=== PATIENT | female | born 1965 | race Caucasian/White ===

== ENCOUNTER → 2016-12-21 | Outpatient (CLI) | payer OTHER ==
[2016-12-21 09:22] LABS: ABSOLUTE EOSINOPHILS # (AUTO) 0.2 10^3/uL (0.0-0.6); ABSOLUTE LYMPHOCYTES (AUTO) 2.9 10^3/uL (0.5-4.7); ABSOLUTE MONOCYTES (AUTO) 0.8 10^3/uL (0.1-1.4); ABSOLUTE NEUT (AUTO) 5.4 10^3/uL (1.7-8.2); BASOPHILS % (AUTO) 0.4 % (0-2); EOSINOPHILS % (AUTO) 2.2 % (0-6); HEMATOCRIT 41.4 % (36.0-47.0); HEMOGLOBIN 14.2 g/dL (12.0-15.5); HGB HCT DIFFERENCE 1.2; LYMPHOCYTES % (AUTO) 31.4 % (13-45); MEAN CORPUSCULAR HEMOGLOBIN 30.6 pg (27.0-33.4); MEAN CORPUSCULAR HGB CONC 34.2 g/dL (32.0-36.0); MEAN CORPUSCULAR VOLUME 89 fl (80-97); RED BLOOD COUNT 4.64 10^6/uL (3.72-5.28); RED CELL DISTRIBUTION WIDTH 14.5 % (11.5-14.0); WHITE BLOOD COUNT 9.4 10^3/uL (4.0-10.5)
[2016-12-21 09:55] LABS: ALANINE AMINOTRANSFERASE 21 U/L (9-52); ALBUMIN 3.7 g/dL (3.5-5.0); ALKALINE PHOSPHATASE 70 U/L (38-126); ANION GAP 11 (5-19); ASPARTATE AMINO TRANSFERASE 17 U/L (14-36); BILIRUBIN,DIRECT 0.2 mg/dL (0.0-0.4); BILIRUBIN,TOTAL 0.6 mg/dL (0.2-1.3); BLOOD UREA NITROGEN 15 mg/dL (7-20); CALCIUM 9.7 mg/dL (8.4-10.2); CARBON DIOXIDE 29 mmol/L (22-30); CHLORIDE 104 mmol/L (98-107); CHOLESTEROL 173.51 mg/dL (0-200); CREATININE RESULT 0.86 mg/dL (0.52-1.25); Direct HDL 36 mg/dL (>40); GLUCOSE 95 mg/dL (75-110); POTASSIUM 4.8 mmol/L (3.6-5.0); SODIUM 143.7 mmol/L (137-145); TOTAL PROTEIN 6.6 g/dL (6.3-8.2); TRIGLYCERIDES 215 mg/dL (<150)
[2016-12-21 10:06] LABS: DIRECT LDL 112 mg/dL (<100)
== END ==
LOC: CCC 08:19
DX: I10 Essential (primary) hypertension (principal)
CPT/HCPCS: 36415; 80053; 80061; 83036; 84443; 85025

== ENCOUNTER → 2016-12-23 | Outpatient (CLI) | payer OTHER | LOC: WI 08:20 | DX: Z12.31 Encounter for screening mammogram for malignant neoplasm of breast (principal) | CPT/HCPCS: 77067; G0202 ==

== ENCOUNTER 2017-01-05 00:10 | Emergency (ER) | payer SELFPAY ==
--- NOTE | 2017-01-05 00:35 | ER Document Report ---
ED General - General Chief Complaint: Weakness Stated Complaint: BLOOD PRESSURE ISSUE Notes: Patient is a 51-year-old female presents for complaint of feeling very dizzy and lightheaded and sweating 30 minutes after she took her first dose of Prazosin. No chest pain. No fevers. She says she has had some recent cough. No other complaints at this time. When paramedics arrived her blood pressure was 87/52. No other complaints at this time. TRAVEL OUTSIDE OF THE [place] IN LAST 30 DAYS: No - Related Data Allergies/Adverse Reactions: No Known Allergies Allergy (Verified 04/22/16 10:11) Past Medical History - Social History Smoking Status: Current Every Day Smoker Frequency of alcohol use: None Drug Abuse: None Family History: CAD, CVA, Other Patient has suicidal ideation: No Patient has homicidal ideation: No - Past Medical History Cardiac Medical History: Reports: Hx Hypercholesterolemia, Hx Hypertension Pulmonary Medical History: Reports: Hx Bronchitis, Hx COPD Renal/ Medical History: Denies: Hx Peritoneal Dialysis Psychiatric Medical History: Reports: Hx Depression Past Surgical History: Reports: Hx Section - x2, Hx Cholecystectomy, Hx Orthopedic Surgery - right shoulder - Immunizations Hx Diphtheria, Pertussis, Tetanus Vaccination: Yes Hx Pneumococcal Vaccination: 09/25/00 Review of Systems - Review of Systems Notes: My Normal Review Basic REVIEW OF SYSTEMS: CONSTITUTIONAL : Denies fever, chills, or sweats. Denies recent illness. EENT: Denies eye, ear, throat, or mouth pain or symptoms. Denies nasal or sinus congestion. CARDIOVASCULAR: Denies chest pain. RESPIRATORY: Denies cough, cold, or chest congestion. Denies shortness of breath, difficulty breathing, or wheezing. GASTROINTESTINAL: Denies abdominal pain. Denies nausea, vomiting, or diarrhea. Denies constipation. Last BM: GENITOURINARY: Denies difficulty urinating, painful urination, burning, frequency, or blood in urine. MUSCULOSKELETAL: Denies neck or back pain or joint pain or swelling. SKIN: Denies rash or skin lesions. NEUROLOGICAL: Dizziness ALL OTHER SYSTEMS REVIEWED AND NEGATIVE. Physical Exam - Vital signs Vitals: Temp Pulse Resp BP Pulse Ox 97.7 F 92 19 90/52 L 97 01/05/17 00:24 01/05/17 00:24 01/05/17 00:24 01/05/17 00:01/05/17 00:24 - Notes Notes: General Appearance: Well nourished, alert, cooperative, no acute distress, no obvious discomfort. Well-appearing. Vitals: reviewed, See vital signs table. Head: no swelling or tenderness to the head Eyes: PERRL, EOMI, Conjuctiva clear Mouth: No decreasd moisture Throat: No tonsillar inflammation, No airway obstruction, No lymphadenopathy Lungs: No wheezing, No rales, No rhonci, No accessory muscle use, good air exchange bilaterally. Heart: Normal rate, Regular rythm, No murmur, no rub Abdomen: Normal BS, soft, No rigidity, No abdominal tenderness, No guarding, no rebound, no abdominal masses, no organomegaly Extremities: strength 5/5 in all extremities, good pulses in all extremities, no swelling or tenderness in the extremities, no edema. Skin: warm, dry, appropriate color, no rash Neuro: speech clear, oriented x 3, normal affect, responds appropriately to questions. Cranial nerves II through XII are intact. Distal sensation intact. Patient moves all extremities without difficulty. Course - Re-evaluation Re-evalutation: 01/05/17 03:01 On reevaluation patient is feeling improved. Her last 2 blood pressures have been normal. I'll watch her for a little bit longer to make sure her blood pressures remained normal. - Vital Signs Vital signs: Temp Pulse Resp BP Pulse Ox 97.7 F 89 19 109/78 94 01/05/17 00:24 01/05/17 02:28 01/05/17 02:28 01/05/17 02:28 01/05/17 02:28 - Laboratory Result Diagrams: 01/05/17 01:50 01/05/17 01:50 Laboratory results interpreted by me: 01/05/17 01/05/17 01:50 01:50 WBC 15.7 H RDW 14.4 H Absolute Neutrophils 11.6 H BUN 24 H Glucose 118 H - EKG Interpretation by Me Additional EKG results interpreted by me: 01/05/17 00:46 EKG is reviewed and interpreted by me. EKG shows normal sinus rhythm with rate of [address] segment elevation or depression. No ischemic T wave changes. TX interval, QRS duration, QTc intervals are within normal range. Old EKG for comparison is from 04/22/2016. - Transfer of Care Notes: 01/05/17 03:45 Patient is feeling improved. Her blood pressures remained normal now. I feel she is safe to be discharged home. I encourage her to stop taking the Prazosin as it appears this is the culprit for her blood pressure dropped and she became dizzy. Patient slept for evaluation is unremarkable except for slight leukocytosis which I think is related to demargination from the episode of hypotension. She has no signs infection and she otherwise looks well. Dictation of this chart was performed using voice recognition software; therefore, there may be some unintended grammatical errors. Discharge - Discharge Clinical Impression: Drug reaction Hypotension Qualifiers: Hypotension type: unspecified hypotension type Qualified Code(s): I95.9 - Hypotension, unspecified Condition: Good Disposition: HOME, SELF-CARE Additional Instructions: Please return to the ER immediately if you develop recurrent dizziness, fevers, chest pain, or feel unwell. Please stop taking the Prazosin and inform your doctor of the reaction you had.
[2017-01-05 02:10] LABS: ABSOLUTE BASOPHILS # (AUTO) 0.1 10^3/uL (0.0-0.2); ABSOLUTE EOSINOPHILS # (AUTO) 0.1 10^3/uL (0.0-0.6); ABSOLUTE LYMPHOCYTES (AUTO) 2.7 10^3/uL (0.5-4.7); ABSOLUTE MONOCYTES (AUTO) 1.2 10^3/uL (0.1-1.4); ABSOLUTE NEUT (AUTO) 11.6 10^3/uL (1.7-8.2); BASOPHILS % (AUTO) 0.5 % (0-2); EOSINOPHILS % (AUTO) 0.9 % (0-6); HEMATOCRIT 38.3 % (36.0-47.0); HEMOGLOBIN 13.2 g/dL (12.0-15.5); HGB HCT DIFFERENCE 1.3; LYMPHOCYTES % (AUTO) 17.2 % (13-45); MEAN CORPUSCULAR HGB CONC 34.4 g/dL (32.0-36.0); MEAN CORPUSCULAR VOLUME 90 fl (80-97); MONOCYTES % (AUTO) 7.6 % (3-13); RED BLOOD COUNT 4.25 10^6/uL (3.72-5.28); RED CELL DISTRIBUTION WIDTH 14.4 % (11.5-14.0); SEGMENTED NEUTROPHILS % (AUTO) 73.8 % (42-78); WHITE BLOOD COUNT 15.7 10^3/uL (4.0-10.5)
[2017-01-05 02:18] LABS: ANION GAP 9 (5-19); BLOOD UREA NITROGEN 24 mg/dL (7-20); CALCIUM 8.9 mg/dL (8.4-10.2); CARBON DIOXIDE 28 mmol/L (22-30); CHLORIDE 106 mmol/L (98-107); CREATININE RESULT 0.89 mg/dL (0.52-1.25); GLUCOSE 118 mg/dL (75-110); POTASSIUM 4.4 mmol/L (3.6-5.0); SODIUM 142.6 mmol/L (137-145)
[2017-01-05 05:03] VITALS: BP 121/74
--- NOTE | 2017-01-05 08:31 | EKG REPORT ---
SEVERITY:- BORDERLINE ECG - SINUS RHYTHM LOW VOLTAGE THROUGHOUT BORDERLINE T ABNORMALITIES, ANT-LAT LEADS : Confirmed by: Oscar Miranda MD 05-Jan-2017 08:30:21
== END 2017-01-05 04:38 | disposition home or self-care (01) ==
LOC: ER 00:10
DX: I95.9 Hypotension, unspecified (principal); T44.6X5A Adverse effect of alpha-adrenoreceptor antagonists, initial encounter; R53.1 Weakness; R42 Dizziness and giddiness; Y92.9 Unspecified place or not applicable; F17.200 Nicotine dependence, unspecified, uncomplicated; E78.00 Pure hypercholesterolemia, unspecified; I10 Essential (primary) hypertension; J44.9 Chronic obstructive pulmonary disease, unspecified; Z90.49 Acquired absence of other specified parts of digestive tract
CPT/HCPCS: 36415; 71010; 80048; 85025; 93005; 93010; 99285

== ENCOUNTER 2017-04-28 19:07 | Emergency (ER) | payer MEDICAID ==
--- NOTE | 2017-04-28 20:30 | ER Document Report ---
ED Dizziness/Weakness - General Chief Complaint: Dizziness Stated Complaint: DIZZINESS/LIGHTHEADED/HEART RACING Time Seen by Provider: 04/28/17 19:54 Notes: Patient is a 51-year-old female who comes emergency department for chief complaint of an episode 2 hours [employer] where she was playing on her phone and she suddenly felt like the room was spinning around her, she states her heart started racing and she felt lightheaded. This happened for about 1-2 minutes, then again for a few seconds after. She states while the world was spinning she stood and felt off balance. She denies any current symptoms other than feeling tired. She denies any chest pain, shortness of breath, fever. She recently has had a mild cough. She smokes, PMH of HTN and COPD. Denies any other medical history. TRAVEL OUTSIDE OF THE [place] IN LAST 30 DAYS: No - Related Data Allergies/Adverse Reactions: No Known Allergies Allergy (Verified 04/28/17 19:18) Past Medical History - General Information source: Patient - Social History Smoking Status: Current Every Day Smoker Smoking Education Provided: Yes - <3 min Frequency of alcohol use: None Drug Abuse: None Lives with: Family Family History: CAD, CVA, Other - Past Medical History Cardiac Medical History: Reports: Hx Hypercholesterolemia, Hx Hypertension Pulmonary Medical History: Reports: Hx Bronchitis, Hx COPD Renal/ Medical History: Denies: Hx Peritoneal Dialysis Psychiatric Medical History: Reports: Hx Depression Past Surgical History: Reports: Hx Section - x2, Hx Cholecystectomy, Hx Orthopedic Surgery - right shoulder - Immunizations Hx Diphtheria, Pertussis, Tetanus Vaccination: Yes Hx Pneumococcal Vaccination: 09/25/00 Review of Systems - Review of Systems Constitutional: No symptoms reported EENT: No symptoms reported Cardiovascular: See HPI Respiratory: No symptoms reported Gastrointestinal: No symptoms reported Genitourinary: No symptoms reported Female Genitourinary: No symptoms reported Musculoskeletal: No symptoms reported Skin: No symptoms reported Hematologic/Lymphatic: No symptoms reported Neurological/Psychological: See HPI Physical Exam - Vital signs Vitals: Temp Pulse Resp BP Pulse Ox 98.1 F 85 20 133/77 H 94 04/28/17 19:19 04/28/17 19:19 04/28/17 19:19 04/28/17 19:19 04/28/17 19:19 Interpretation: Normal - General General appearance: Appears well, Alert In distress: None - HEENT Head: Normocephalic, Atraumatic Eyes: Normal Conjunctiva: Normal Extraocular movements intact: Yes Eyelashes: Normal Pupils: PERRL Sinus: Normal Nasal: Normal Mouth/Lips: Normal Mucous membranes: Normal Pharynx: Normal Neck: Normal - Respiratory Respiratory status: No respiratory distress Chest status: Nontender Breath sounds: Normal. No: Decreased air movement, Wheezing Chest palpation: Normal - Cardiovascular Rhythm: Regular. No: Tachycardia Heart sounds: Normal auscultation, S1 appreciated, S2 appreciated Murmur: No - Abdominal Inspection: Normal Distension: No distension Bowel sounds: Normal Tenderness: Nontender Organomegaly: No organomegaly - Back Back: Normal, Nontender - Extremities General upper extremity: Normal inspection, Nontender, Normal color, Normal ROM , Normal temperature General lower extremity: Normal inspection, Nontender, Normal color, Normal ROM , Normal temperature, Normal weight bearing. No: Nedra's sign - Neurological Neuro grossly intact: Yes Cognition: Normal Orientation: AAOx4 Delia Coma Scale Eye Opening: Spontaneous Delia Coma Scale Verbal: Oriented Harrington Coma Scale Motor: Obeys Commands Harrington Coma Scale Total: 15 Speech: Normal Motor strength normal: LUE, RUE, LLE, RLE Sensory: Normal - Psychological Associated symptoms: Normal affect, Normal mood - Skin Skin Temperature: Warm Skin Moisture: Dry Skin Color: Normal Course - Re-evaluation Re-evalutation: Patient asymptomatic on my evaluation. EKG with no arrhythmia or concerning findings, sinus rhythm with no T-wave inversions or ST segment changes in consecutive leads. CBC, chemistry, cardiac enzymes, TSH unremarkable. Chest x- ray showing possible reactive airway/viral syndrome. Patient with no symptoms on my reevaluation. I offered to do a Mahomet-Hallpike test to confirm what I suspect is vertigo. Patient agrees that she was having vertigo earlier, states she has had this in the past but has not been treated for it in a while. She refuses the test. If she asks for treatment for vertigo so it "will not come back". Patient asking to leave. No evidence of ACS or other concerning abnormality, normal neurological testing. Discussed treatment with meclizine temporarily, return precautions including headache, chest pain, shortness of breath. Patient states understanding and agreement. I also did discuss smoking cessation, patient states she knows she needs to quit and she is planning to. - Vital Signs Vital signs: Temp Pulse Resp BP Pulse Ox 98.4 F 85 16 105/79 96 04/28/17 22:01 04/28/17 19:19 04/28/17 22:01 04/28/17 22:01 04/28/17 22:01 - Laboratory Result Diagrams: 04/28/17 20:55 04/28/17 20:55 Laboratory results interpreted by me: 04/28/17 20:55 WBC 12.1 H Discharge - Discharge Clinical Impression: Dizziness, Vertigo Condition: Stable Disposition: HOME, SELF-CARE Additional Instructions: No concerning abnormality is seen on your workup tonight. Your symptoms are most consistent with vertigo. Your chest x-ray suggests mild upper respiratory congestion. Stop smoking. Take the meclizine as prescribed, follow-up with primary care for additional management. Return to emergency department for any concerning symptoms including chest pain, shortness of breath, passing out, weakness on one side of your body, or any other concerning symptoms. Prescriptions: Meclizine HCl [Bonine] 25 mg PO TID #24 tab.chew Forms: Smoking Cessation Education
[2017-04-28 21:14] LABS: ABSOLUTE BASOPHILS # (AUTO) 0.1 10^3/uL (0.0-0.2); ABSOLUTE EOSINOPHILS # (AUTO) 0.3 10^3/uL (0.0-0.6); ABSOLUTE LYMPHOCYTES (AUTO) 3.2 10^3/uL (0.5-4.7); ABSOLUTE MONOCYTES (AUTO) 1.1 10^3/uL (0.1-1.4); ABSOLUTE NEUT (AUTO) 7.5 10^3/uL (1.7-8.2); BASOPHILS % (AUTO) 0.9 % (0-2); EOSINOPHILS % (AUTO) 2.1 % (0-6); HEMATOCRIT 43.4 % (36.0-47.0); HEMOGLOBIN 14.6 g/dL (12.0-15.5); HGB HCT DIFFERENCE 0.4; LYMPHOCYTES % (AUTO) 26.6 % (13-45); MEAN CORPUSCULAR HGB CONC 33.6 g/dL (32.0-36.0); MEAN CORPUSCULAR VOLUME 92 fl (80-97); RED CELL DISTRIBUTION WIDTH 13.8 % (11.5-14.0); SEGMENTED NEUTROPHILS % (AUTO) 61.4 % (42-78); WHITE BLOOD COUNT 12.1 10^3/uL (4.0-10.5)
--- NOTE | 2017-04-28 21:21 | RADIOLOGY REPORT (SQ) ---
EXAM DESCRIPTION: CHEST SINGLE VIEW COMPLETED DATE/TIME: 04/28/2017 8:46 pm REASON FOR STUDY: lightheaded, cough COMPARISON: 01/05/2017 NUMBER OF VIEWS: One view. TECHNIQUE: Single frontal radiographic view of the chest acquired. LIMITATIONS: None. FINDINGS: LUNGS AND PLEURA: Peribronchial cuffing and interstitial changes. No consolidation, pneumo thorax or effusion. MEDIASTINUM AND HILAR STRUCTURES: No masses. Contour normal. HEART AND VASCULAR STRUCTURES: Heart normal in size. Normal vasculature. BONES: No acute findings. HARDWARE: None in the chest. OTHER: No other significant finding. IMPRESSION: REACTIVE AIRWAY DISEASE VERSUS VIRAL SYNDROME. NO CONSOLIDATION. TECHNICAL DOCUMENTATION: JOB ID: [id number] [employer]- All Rights Reserved
[2017-04-28 21:34] LABS: ALANINE AMINOTRANSFERASE 32 U/L (9-52); ALBUMIN 4.1 g/dL (3.5-5.0); ALKALINE PHOSPHATASE 78 U/L (38-126); ANION GAP 11 (5-19); ASPARTATE AMINO TRANSFERASE 25 U/L (14-36); BILIRUBIN,DIRECT 0.3 mg/dL (0.0-0.4); BILIRUBIN,TOTAL 0.6 mg/dL (0.2-1.3); BLOOD UREA NITROGEN 15 mg/dL (7-20); CALCIUM 9.8 mg/dL (8.4-10.2); CARBON DIOXIDE 27 mmol/L (22-30); CHLORIDE 103 mmol/L (98-107); CREATINE KINASE 123 U/L (30-135); CREATININE RESULT 0.88 mg/dL (0.52-1.25); GLUCOSE 82 mg/dL (75-110); POTASSIUM 4.4 mmol/L (3.6-5.0); TOTAL PROTEIN 7.5 g/dL (6.3-8.2)
[2017-04-28 21:46] LABS: CREATINE KINASE MB 0.76 ng/mL (<4.55)
[2017-04-28 21:47] LABS: TROPONIN I < 0.012 ng/mL
[2017-04-28] MEDS ORDERED: MECLIZINE HCL 25 MG TABLET PO ONE (22:47)
[2017-04-28 22:58] VITALS: BP 105/79
--- NOTE | 2017-04-29 09:56 | EKG REPORT ---
SEVERITY:- BORDERLINE ECG - SINUS RHYTHM LOW VOLTAGE THROUGHOUT : Confirmed by: Oscar Miranda MD 29-Apr-2017 09:56:14
== END 2017-04-28 23:10 | disposition home or self-care (01) ==
LOC: ER 19:07
DX: R42 Dizziness and giddiness (principal); R53.83 Other fatigue; J44.9 Chronic obstructive pulmonary disease, unspecified; R05 Cough; F17.200 Nicotine dependence, unspecified, uncomplicated; Z71.6 Tobacco abuse counseling
CPT/HCPCS: 36415; 71010; 80053; 82550; 82553; 84443; 84484; 85025; 93005; 93010; 99284

== ENCOUNTER 2017-11-27 10:10 | Emergency (ER) | payer MEDICAID ==
[2017-11-27 10:25] VITALS: BP 121/69
--- NOTE | 2017-11-27 10:34 | ER Document Report ---
ED Medical Screen (RME) - General Chief Complaint: Breathing Difficulty Stated Complaint: CHEST PAIN Time Seen by Provider: 11/27/17 10:32 Notes: pt reports cough/cp congestion, fever for several days TRAVEL OUTSIDE OF THE [place] IN LAST 30 DAYS: No - Related Data Allergies/Adverse Reactions: No Known Allergies Allergy (Verified 11/27/17 10:28) Past Medical History - Social History Chew tobacco use (# tins/day): No Frequency of alcohol use: None Drug Abuse: None Family history: Hypertension, Other - Past Medical History Cardiac Medical History: Reports: Hx Hypercholesterolemia, Hx Hypertension Pulmonary Medical History: Reports: Hx Bronchitis, Hx COPD, Hx Pneumonia Renal/ Medical History: Denies: Hx Peritoneal Dialysis Psychiatric Medical History: Reports: Hx Depression Past Surgical History: Reports: Hx Section - x2, Hx Cholecystectomy, Hx Orthopedic Surgery - right shoulder - Immunizations Hx Diphtheria, Pertussis, Tetanus Vaccination: Yes Physical Exam - Vital signs Vitals: Temp Pulse Resp BP Pulse Ox 97.7 F 82 18 121/69 95 11/27/17 10:23 11/27/17 10:23 11/27/17 10:23 11/27/17 10:23 11/27/17 10:23 Course - Vital Signs Vital signs: Temp Pulse Resp BP Pulse Ox 97.7 F 82 18 121/69 95 11/27/17 10:23 11/27/17 10:23 11/27/17 10:23 11/27/17 10:23 11/27/17 10:23
[2017-11-27 10:52] LABS: ABSOLUTE BASOPHILS # (AUTO) 0.1 10^3/uL (0.0-0.2); ABSOLUTE EOSINOPHILS # (AUTO) 0.2 10^3/uL (0.0-0.6); ABSOLUTE LYMPHOCYTES (AUTO) 3.3 10^3/uL (0.5-4.7); ABSOLUTE MONOCYTES (AUTO) 0.8 10^3/uL (0.1-1.4); ABSOLUTE NEUT (AUTO) 7.4 10^3/uL (1.7-8.2); BASOPHILS % (AUTO) 0.6 % (0-2); LYMPHOCYTES % (AUTO) 28.1 % (13-45); MEAN CORPUSCULAR HEMOGLOBIN 30.5 pg (27.0-33.4); MEAN CORPUSCULAR HGB CONC 34.1 g/dL (32.0-36.0); MEAN CORPUSCULAR VOLUME 90 fl (80-97); MONOCYTES % (AUTO) 6.4 % (3-13); PLATELET COUNT 341 10^3/uL (150-450); RED BLOOD COUNT 4.57 10^6/uL (3.72-5.28); RED CELL DISTRIBUTION WIDTH 14.2 % (11.5-14.0); SEGMENTED NEUTROPHILS % (AUTO) 62.9 % (42-78); TOTAL CELLS COUNTED % (AUTO) 100 %; WHITE BLOOD COUNT 11.8 10^3/uL (4.0-10.5)
--- NOTE | 2017-11-27 11:07 | RADIOLOGY REPORT (SQ) ---
EXAM DESCRIPTION: CHEST PA/LAT COMPLETED DATE/TIME: 11/27/2017 10:54 am REASON FOR STUDY: pain COMPARISON: 04/28/2017 EXAM PARAMETERS: NUMBER OF VIEWS: two views TECHNIQUE: Digital Frontal and Lateral radiographic views of the chest acquired. RADIATION DOSE: NA LIMITATIONS: none FINDINGS: LUNGS AND PLEURA: No opacities, masses or pneumothorax. No pleural effusion. MEDIASTINUM AND HILAR STRUCTURES: No masses or contour abnormalities. HEART AND VASCULAR STRUCTURES: Heart normal size. No evidence for failure. BONES: No acute findings. HARDWARE: None in the chest. OTHER: No other significant finding. IMPRESSION: NO ACUTE RADIOGRAPHIC FINDING IN THE CHEST. TECHNICAL DOCUMENTATION: JOB ID: [id number] [employer]- All Rights Reserved Reading location - IP/workstation name: [email or web address]
[2017-11-27 11:20] LABS: ALANINE AMINOTRANSFERASE 30 U/L (9-52); ALKALINE PHOSPHATASE 72 U/L (38-126); ANION GAP 9 (5-19); ASPARTATE AMINO TRANSFERASE 17 U/L (14-36); BILIRUBIN,DIRECT 0.1 mg/dL (0.0-0.4); BILIRUBIN,TOTAL 0.4 mg/dL (0.2-1.3); BLOOD UREA NITROGEN 14 mg/dL (7-20); CALCIUM 9.8 mg/dL (8.4-10.2); CARBON DIOXIDE 29 mmol/L (22-30); CHLORIDE 102 mmol/L (98-107); GLUCOSE 119 mg/dL (75-110); POTASSIUM 4.5 mmol/L (3.6-5.0); SODIUM 140.1 mmol/L (137-145); TOTAL PROTEIN 6.8 g/dL (6.3-8.2)
[2017-11-27] MEDS ORDERED: PREDNISONE 20 MG TABLET PO ONE (12:34)
[2017-11-27] MEDS ORDERED: IPRATROPIUM/ALBUTEROL 0.5-2.5 MG/3 ML AMPUL NEB ONE (12:34)
--- NOTE | 2017-11-27 12:35 | ER Document Report ---
ED General - General Chief Complaint: Breathing Difficulty Stated Complaint: CHEST PAIN Time Seen by Provider: 11/27/17 10:32 Mode of Arrival: Ambulatory Information source: Patient Notes: 51-year-old female history of COPD who still smokes half pack a day presents with complaints of a few day duration of shortness of breath yellowish sputum. Patient notes she has been wheezing, patient has been using her inhaler with minimal improvement. She denies any fevers or chills today but had fever yesterday Patient denies any nausea vomiting or diarrhea Patient denies any swelling in her extremities TRAVEL OUTSIDE OF THE [place] IN LAST 30 DAYS: No - HPI Onset: Other Onset/Duration: Persistent, Worse Quality of pain: No pain Severity: Mild Pain Level: Denies Associated symptoms: Nonproductive cough, Productive cough, Shortness of breath Exacerbated by: Movement, Walking, Coughing Relieved by: Denies Similar symptoms previously: Yes Recently seen / treated by doctor: Yes - Related Data Allergies/Adverse Reactions: No Known Allergies Allergy (Verified 11/27/17 10:28) Past Medical History - Social History Smoking Status: Current Every Day Smoker Cigarette use (# per day): Yes Chew tobacco use (# tins/day): No Smoking Education Provided: Yes - Patient counselled regarding cessation for 4 minutes Frequency of alcohol use: None Drug Abuse: None Family History: CAD, CVA, Other Patient has suicidal ideation: No Patient has homicidal ideation: No - Past Medical History Cardiac Medical History: Reports: Hx Hypercholesterolemia, Hx Hypertension Pulmonary Medical History: Reports: Hx Bronchitis, Hx COPD, Hx Pneumonia Renal/ Medical History: Denies: Hx Peritoneal Dialysis Psychiatric Medical History: Reports: Hx Depression Past Surgical History: Reports: Hx Section - x2, Hx Cholecystectomy, Hx Orthopedic Surgery - right shoulder - Immunizations Hx Diphtheria, Pertussis, Tetanus Vaccination: Yes Hx Pneumococcal Vaccination: 09/25/00 Review of Systems - Review of Systems Notes: REVIEW OF SYSTEMS: CONSTITUTIONAL : Denies fever, chills, or sweats. Denies recent illness. EENT: Denies eye, ear, throat, or mouth pain or symptoms. Denies nasal or sinus congestion or discharge. Denies throat, tongue, or mouth swelling or difficulty swallowing. CARDIOVASCULAR: Denies chest pain. Denies palpitations or racing or irregular heart beat. Denies ankle edema. RESPIRATORY: Admits shortness of breath wheezing GASTROINTESTINAL: Denies abdominal pain or distention. Denies nausea, vomiting , or diarrhea. Denies blood in vomitus, stools, or per rectum. Denies black, tarry stools. Denies constipation. GENITOURINARY: Denies difficulty urinating, painful urination, burning, frequency, blood in urine, or discharge. FEMALE GENITOURINARY: Denies vaginal bleeding, heavy or abnormal periods, irregular periods. Denies vaginal discharge or odor. MUSCULOSKELETAL: Denies back or neck pain or stiffness. Denies joint pain or swelling. SKIN: Denies rash, lesions or sores. HEMATOLOGIC : Denies easy bruising or bleeding. LYMPHATIC: Denies swollen, enlarged glands. NEUROLOGICAL: Denies confusion or altered mental status. Denies passing out or loss of consciousness. Denies dizziness or lightheadedness. Denies headache. Denies weakness or paralysis or loss of use of either side. Denies problems with gait or speech. Denies sensory loss, numbness, or tingling. Denies seizures. PSYCHIATRIC: Denies anxiety or stress. Denies depression, suicidal ideation, or homicidal ideation. ALL OTHER SYSTEMS REVIEWED AND NEGATIVE. PHYSICAL EXAMINATION: GENERAL: Well-appearing, well-nourished and in no acute distress. HEAD: Atraumatic, normocephalic. EYES: Pupils equal round and reactive to light, extraocular movements intact, conjunctiva are normal. ENT: Nares patent, oropharynx clear without exudates. Moist mucous membranes. NECK: Normal range of motion, supple without lymphadenopathy LUNGS: Mild inspiratory expiratory wheezing noted all throughout HEART: Regular rate and rhythm without murmurs ABDOMEN: Soft, nontender, nondistended abdomen. No guarding, no rebound. No masses appreciated. Female : deferred Musculoskeletal: Normal range of motion, no pitting or edema. No cyanosis. NEUROLOGICAL: Cranial nerves grossly intact. Normal speech, normal gait. Normal sensory, motor exams PSYCH: Normal mood, normal affect. SKIN: Warm, Dry, normal turgor, no rashes or lesions noted. Dictation was performed using [employer] voice recognition software Physical Exam - Vital signs Vitals: Temp Pulse Resp BP Pulse Ox 97.7 F 82 18 121/69 95 11/27/17 10:23 11/27/17 10:23 11/27/17 10:23 11/27/17 10:23 11/27/17 10:23 Course - Re-evaluation Re-evalutation: 11/27/17 16:05 Patient overall looks well is in no distress, she appears to be having COPD exacerbation, lab work imaging otherwise was quite benign, she was given breathing treatment no significant improvement, she will be started on prednisone as well as antibiotics given the productive cough. Presumed pneumonia versus acute exacerbation of COPD Patient's O2 sat has been stable, however she has been given very strict return precautions After performing a Medical Screening Examination, I estimate there is LOW risk for ACUTE CORONARY SYNDROME, PULMONARY EMBOLI, RESPIRATORY FAILURE, SEPSIS OR MENINGITIS, thus I consider the discharge disposition reasonable. I have reevaluated this patient multiple times and no significant life threatening changes are noted. The patient and I have discussed the diagnosis and risks, and we agree with discharging home with close follow-up. We also discussed returning to the Emergency Department immediately if new or worsening symptoms occur. We have discussed the symptoms which are most concerning (e.g., changing or worsening pain, trouble swallowing or breathing, neck stiffness, fever) that necessitate immediate return. - Vital Signs Vital signs: Temp Pulse Resp BP Pulse Ox 97.7 F 82 18 121/69 95 11/27/17 10:23 11/27/17 10:23 11/27/17 10:23 11/27/17 10:23 11/27/17 10:23 - Laboratory Result Diagrams: 11/27/17 10:33 11/27/17 10:33 Laboratory results interpreted by me: 11/27/17 11/27/17 10:33 10:33 WBC 11.8 H RDW 14.2 H Glucose 119 H - Diagnostic Test Radiology reviewed: Image reviewed, Reports reviewed - no acute abnormality - EKG Interpretation by [facility] EKG shows normal: Sinus rhythm, Joseph, Intervals, QRS Complexes Discharge - Discharge Clinical Impression: COPD exacerbation, Increased sputum production, Atypical chest pain Pneumonia Qualifiers: Pneumonia type: due to unspecified organism Laterality: unspecified laterality Lung location: unspecified part of lung Qualified Code(s): J18.9 - Pneumonia, unspecified organism Condition: Stable Disposition: HOME, SELF-CARE Instructions: Chronic Obstructive Lung Disease ([facility]) Prescriptions: Doxycycline Hyclate 100 mg PO BID #14 capsule Prednisone [Deltasone 20 mg Tablet] 3 tab PO DAILY 5 Days tablet Forms: Smoking Cessation Education
--- NOTE | 2017-11-27 21:49 | EKG REPORT ---
SEVERITY:- BORDERLINE ECG - SINUS RHYTHM LOW VOLTAGE THROUGHOUT : Confirmed by: Osei Conklin 27-Nov-2017 21:48:58
== END 2017-11-27 13:58 | disposition home or self-care (01) ==
LOC: ER 10:10
DX: J44.0 Chronic obstructive pulmonary disease with (acute) lower respiratory infection (principal); J18.9 Pneumonia, unspecified organism; J44.1 Chronic obstructive pulmonary disease with (acute) exacerbation; R07.89 Other chest pain; I10 Essential (primary) hypertension; F17.210 Nicotine dependence, cigarettes, uncomplicated; Z71.6 Tobacco abuse counseling
CPT/HCPCS: 93005; 99406; 94640; 99285; 36415; 85025; 80053; 84484; 71046; 93010; J7512; J7620

== ENCOUNTER 2018-06-23 16:39 | Observation (INO) | payer SELFPAY ==
[2018-06-23] MEDS ORDERED: ASPIRIN 81 MG TABLET, CHEWABLE PO ONE (17:00)
--- NOTE | 2018-06-23 17:10 | ER Document Report ---
ED General - General Chief Complaint: Chest Tightness Stated Complaint: CHEST TIGHTNESS Time Seen by Provider: 06/23/18 17:07 Notes: Patient is a 52-year-old female that presents to the emergency department for chief complaint of chest pain. Patient states that she has been having episodes of chest tightness and heaviness, a total of 3 episodes in the last 2- 3 days where she had heaviness and tightness in her chest, associated with diaphoresis and lightheadedness. She had 2 episodes today, one this morning where she had a tightness in her chest, and again felt lightheaded and diaphoretic, she called EMS and they arrived, by that time her symptoms have resolved, they did give her aspirin, and she was feeling better so she did not come to the emergency department, she then had another up episode later today which which point triggered her to come to the ER to be evaluated. She has a history of hypertension and family history of CAD, as well as smoking history. At this time she feels chest pain-free, she did have associated shortness of breath with this earlier on today, she denies any recent fevers, chills, cough, abdominal pain, dysuria or hematuria. Past Medical History: Anxiety, hypertension Past Surgical History: Cholecystectomy, Social History: Admits to smoking cigarettes daily, and occasional alcohol use, denies illicit drug use. Family History: Early CAD Allergies: Reviewed, see documented allergy list. REVIEW OF SYSTEMS: Unless otherwise stated in this report the patient's positive and negative responses for review of systems for constitutional, eyes, ENT, cardiovascular, respiratory, gastrointestinal, neurological, genitourinary, musculoskeletal, and integumentary systems and related systems to the presenting problem are either as stated in the HPI or were not pertinent or were negative for the symptoms and/or complaints related to the presenting medical problem. PHYSICAL EXAMINATION: Vital signs reviewed, nursing noted reviewed. GENERAL: Well-appearing, well-nourished and in no acute distress. HEAD: Atraumatic, normocephalic. EYES: Eyes appear normal, extraocular movements intact, sclera anicteric, conjunctiva are normal. ENT: nares patent, oropharynx clear without exudates. Moist mucous membranes. NECK: Normal range of motion, supple without lymphadenopathy LUNGS: Breath sounds clear to auscultation bilaterally and equal. No wheezes rales or rhonchi. No chest wall tenderness HEART: Regular rate and rhythm without murmurs ABDOMEN: Soft, obese, nontender, normoactive bowel sounds. No rebound, guarding , or rigidity. No masses appreciated. EXTREMITIES: Nontender, good range of motion, no pitting or edema. NEUROLOGICAL: No focal neurological deficits. Moves all extremities spontaneously Motor and sensory grossly intact on exam. PSYCH: Normal mood, normal affect. SKIN: Warm, Dry, normal turgor, no rashes or lesions noted on exposed skin TRAVEL OUTSIDE OF THE [place] IN LAST 30 DAYS: No - Related Data Allergies/Adverse Reactions: No Known Allergies Allergy (Verified 06/23/18 16:40) Past Medical History - Social History Smoking Status: Current Every Day Smoker Family History: CAD, CVA, Other - Past Medical History Cardiac Medical History: Reports: Hx Hypercholesterolemia, Hx Hypertension Pulmonary Medical History: Reports: Hx Bronchitis, Hx COPD, Hx Pneumonia Renal/ Medical History: Denies: Hx Peritoneal Dialysis Psychiatric Medical History: Reports: Hx Depression Past Surgical History: Reports: Hx Section - x2, Hx Cholecystectomy, Hx Orthopedic Surgery - right shoulder - Immunizations Hx Diphtheria, Pertussis, Tetanus Vaccination: Yes Hx Pneumococcal Vaccination: 09/25/00 Physical Exam - Vital signs Vitals: Temp Pulse Resp BP Pulse Ox 98.0 F 93 18 130/60 H 93 06/23/18 16:53 06/23/18 16:53 06/23/18 16:53 06/23/18 16:53 06/23/18 16:53 Course - Re-evaluation Re-evalutation: Patient seen and examined vital signs reviewed. Laboratory data and imaging were ordered as appropriate for the patient's presenting symptoms and complaint, with consideration of any critical or life threatening conditions that may be associated with their obtained history and exam as noted above. Patient took aspirin prior to ED arrival, she took a total of 324 mg Results were reviewed when available and demonstrated initial troponin was negative, blood work demonstrated mild leukocytosis, no obvious source of infection at this time, chest x-ray negative, EKG demonstrated T wave flattening in lead V2 The patient was re-evaluated and was stable Evaluation was most consistent with nonspecific chest pain, her heart score is 4 however though placing her in a moderate risk category, for coronary artery disease, given her history of hypertension, family history, smoking history and obesity, and a story that is slightly suspicious given that she has had diaphoresis associated with her chest pain, describes as a heaviness in the left side of her chest with radiation towards the shoulder Results were discussed with the patient at this point after careful consideration I feel that that patient should be admitted to the hospital. This was discussed with the patient that it is in the best interest for their care to be admitted for further evaluation and management. Patient agreed with this plan of care. A call was placed to the admitted physician, Dr. Perez who graciously accepted the patient onto their service. *Note is created using voice recognition software and may contain spelling, syntax or grammatical errors. Laboratory 06/23/18 06/23/18 06/23/18 17:12 17:12 17:12 WBC 12.6 H RBC 4.53 Hgb 13.7 Hct 40.3 MCV 89 MCH 30.4 MCHC 34.1 RDW 14.2 H Plt Count 355 Seg Neutrophils % 62.4 Lymphocytes % 28.5 Monocytes % 6.8 Eosinophils % 1.9 Basophils % 0.4 Absolute Neutrophils 7.8 Absolute Lymphocytes 3.6 Absolute Monocytes 0.9 Absolute Eosinophils 0.2 Absolute Basophils 0.0 Sodium 140.3 Potassium 4.0 Chloride 100 Carbon Dioxide 30 Anion Gap 10 BUN 16 Creatinine 0.90 Est GFR ( Amer) > 60 Est GFR (Non-Af Amer) > 60 Glucose 126 H Calcium 9.3 Total Bilirubin 0.5 Direct Bilirubin 0.3 Neonat Total Bilirubin Not Reportable Neonat Direct Bilirubin Not Reportable Neonat Indirect Bili Not Reportable AST 43 H ALT 12 Alkaline Phosphatase 71 Creatine Kinase 46 CK-MB (CK-2) 0.40 Troponin I < 0.012 Total Protein 7.6 Albumin 3.9 06/23/18 20:50 WBC RBC Hgb Hct MCV MCH MCHC RDW Plt Count Seg Neutrophils % Lymphocytes % Monocytes % Eosinophils % Basophils % Absolute Neutrophils Absolute Lymphocytes Absolute Monocytes Absolute Eosinophils Absolute Basophils Sodium Potassium Chloride Carbon Dioxide Anion Gap BUN Creatinine Est GFR ( Amer) Est GFR (Non-Af Amer) Glucose Calcium Total Bilirubin Direct Bilirubin Neonat Total Bilirubin Neonat Direct Bilirubin Neonat Indirect Bili AST ALT Alkaline Phosphatase Creatine Kinase CK-MB (CK-2) Troponin I < 0.012 Total Protein Albumin Chest X-Ray 06/23/18 17:00 IMPRESSION: NO ACUTE RADIOGRAPHIC FINDING IN THE CHEST. - Vital Signs Vital signs: Temp Pulse Resp BP Pulse Ox 98 F 80 20 93/69 L 97 06/23/18 23:29 06/23/18 23:29 06/23/18 23:29 06/23/18 23:29 06/23/18 23:29 - Laboratory Result Diagrams: 06/23/18 17:12 06/23/18 17:12 Laboratory results interpreted by me: 06/23/18 06/23/18 17:12 17:12 WBC 12.6 H RDW 14.2 H Glucose 126 H AST 43 H - EKG Interpretation by Me Additional EKG results interpreted by me: EKG demonstrates sinus rhythm with a ventricular rate of 91 bpm, left axis deviation, normal intervals, there is T wave flattening in leads aVL and V2, this is compared with prior EKG, T wave flattening in V2 appears to be new, otherwise no new changes. Prior EKG was from 11/27/2017. Discharge - Discharge Clinical Impression: Chest pain Qualifiers: Chest pain type: unspecified Qualified Code(s): R07.9 - Chest pain, unspecified Condition: Stable Disposition: ADMITTED OBSERVATION Admitting Provider: Hospitalist - DR. PEREZ Unit Admitted: Telemetry
[2018-06-23 17:39] LABS: ABSOLUTE EOSINOPHILS # (AUTO) 0.2 10^3/uL (0.0-0.6); ABSOLUTE LYMPHOCYTES (AUTO) 3.6 10^3/uL (0.5-4.7); ABSOLUTE MONOCYTES (AUTO) 0.9 10^3/uL (0.1-1.4); ABSOLUTE NEUT (AUTO) 7.8 10^3/uL (1.7-8.2); BASOPHILS % (AUTO) 0.4 % (0-2); EOSINOPHILS % (AUTO) 1.9 % (0-6); HEMATOCRIT 40.3 % (36.0-47.0); HEMOGLOBIN 13.7 g/dL (12.0-15.5); LYMPHOCYTES % (AUTO) 28.5 % (13-45); MEAN CORPUSCULAR HEMOGLOBIN 30.4 pg (27.0-33.4); MEAN CORPUSCULAR HGB CONC 34.1 g/dL (32.0-36.0); MEAN CORPUSCULAR VOLUME 89 fl (80-97); MONOCYTES % (AUTO) 6.8 % (3-13); PLATELET COUNT 355 10^3/uL (150-450); RED BLOOD COUNT 4.53 10^6/uL (3.72-5.28); RED CELL DISTRIBUTION WIDTH 14.2 % (11.5-14.0); SEGMENTED NEUTROPHILS % (AUTO) 62.4 % (42-78); TOTAL CELLS COUNTED % (AUTO) 100 %; WHITE BLOOD COUNT 12.6 10^3/uL (4.0-10.5)
[2018-06-23 18:00] LABS: ALANINE AMINOTRANSFERASE 12 U/L (9-52); ALBUMIN 3.9 g/dL (3.5-5.0); ALKALINE PHOSPHATASE 71 U/L (38-126); ANION GAP 10 (5-19); ASPARTATE AMINO TRANSFERASE 43 U/L (14-36); BILIRUBIN,DIRECT 0.3 mg/dL (0.0-0.4); BILIRUBIN,TOTAL 0.5 mg/dL (0.2-1.3); BLOOD UREA NITROGEN 16 mg/dL (7-20); CALCIUM 9.3 mg/dL (8.4-10.2); CARBON DIOXIDE 30 mmol/L (22-30); CHLORIDE 100 mmol/L (98-107); CREATINE KINASE 46 U/L (30-135); GLUCOSE 126 mg/dL (75-110); SODIUM 140.3 mmol/L (137-145); TOTAL PROTEIN 7.6 g/dL (6.3-8.2)
--- NOTE | 2018-06-23 18:03 | RADIOLOGY REPORT (SQ) ---
EXAM DESCRIPTION: CHEST SINGLE VIEW COMPLETED DATE/TIME: 06/23/2018 5:45 pm REASON FOR STUDY: cp COMPARISON: 11/27/2017 EXAM PARAMETERS: NUMBER OF VIEWS: One view. TECHNIQUE: Single frontal radiographic view of the chest acquired. RADIATION DOSE: NA LIMITATIONS: None. FINDINGS: LUNGS AND PLEURA: No opacities, masses or pneumothorax. No pleural effusion. MEDIASTINUM AND HILAR STRUCTURES: No masses. Contour normal. HEART AND VASCULAR STRUCTURES: Heart normal in size. Normal vasculature. BONES: No acute findings. HARDWARE: None in the chest. OTHER: No other significant finding. IMPRESSION: NO ACUTE RADIOGRAPHIC FINDING IN THE CHEST. TECHNICAL DOCUMENTATION: JOB ID: [id number] 2010 [employer]- All Rights Reserved Reading location - IP/workstation name: [email or web address]
[2018-06-23 18:13] LABS: TROPONIN I < 0.012 ng/mL
--- NOTE | 2018-06-23 20:22 | EKG REPORT ---
SEVERITY:- BORDERLINE ECG - SINUS RHYTHM LOW VOLTAGE THROUGHOUT BORDERLINE T ABNORMALITIES, ANT-LAT LEADS : Confirmed by: Yue Harrington MD 23-Jun-2018 20:21:46
[2018-06-23] MEDS ORDERED: MAG HYDROX/AL HYDROX/SIMETH SUSP 30 ML UDCUP PO PRN (22:20)
[2018-06-23] MEDS ORDERED: NITROGLYCERIN 0.4 MG/TAB 25 TAB/BOTTLE SL PRN (22:20)
[2018-06-23] MEDS ORDERED: HYDRALAZINE HCL INJ/PF 20 MG/1 ML SDV IV PRN (22:21)
[2018-06-23] MEDS: ATORVASTATIN CALCIUM 40 MG TABLET PO SCH (23:23)
--- NOTE | 2018-06-24 05:13 | PDOC H&P ---
History of Present Illness Admission Date/PCP: 06/23/18 20:14 TOM SMALL MD Patient complains of: Chest pain History of Present Illness: MURALI OCONNOR is a 52 year old female with a past medical history of hypertension, morbid obesity, GERD and anxiety. Presents with 72 hours of intermittent chest heaviness and tightness, 1 out of 5 intensity, nonradiating, occurring with exertion associated with diaphoresis and shortness of breath. She denies palpitations, nausea or vomiting, recent change of medications or current pain. In the emergency room she has an unremarkable workup and is referred to the hospitalist for observation. Past Medical History Cardiac Medical History: Reports: Hyperlipidema, Hypertension Pulmonary Medical History: Reports: Bronchitis, Chronic Obstructive Pulmonary Disease (COPD), Pneumonia EENT Medical History: Reports: None Neurological Medical History: Reports: None Endocrine Medical History: Reports: Obesity Renal/ Medical History: Reports: None Malignancy Medical History: Reports: None GI Medical History: Reports: Gastroesophageal Reflux Disease Musculoskeltal Medical History: Reports: None Skin Medical History: Reports: None Psychiatric Medical History: Reports: Depression, Tobacco Dependency Past Surgical History Past Surgical History: Reports: Section - x2, Cholecystectomy, Orthopedic Surgery - right shoulder Social History Information Source: Patient, Emergency Med Personnel, [facility] Records Smoking Status: Current Every Day Smoker Cigarettes Packs Per Day: 0.5 Last Time Smoked: 06/23/18 Frequency of Alcohol Use: Rare Hx Recreational Drug Use: No Drugs: None Hx Prescription Drug Abuse: No - Advance Directive Resuscitation Status: Full Code Family History Family History: CAD, CVA, Other Parental Family History Reviewed: Yes Children Family History Reviewed: Yes Sibling(s) Family History Reviewed.: Yes Medication/Allergy Home Medications: Lisinopril 10 mg PO DAILY #30 tablet 04/09/13 Atorvastatin Calcium [Lipitor 40 mg Tablet] 40 mg PO QHS #30 tablet 06/24/15 Lisinopril [Prinivil 10 mg Tablet] 10 mg PO DAILY #30 tablet 06/24/15 Meclizine HCl [Antivert 12.5 mg Tablet] 12.5 mg PO TID PRN #30 tablet 06/24/15 Albuterol Sulfate [Albuterol Sulfate 2.5mg/3 mL] 1 vial IH Q4 PRN #30 vial 04/22 Azithromycin [Zithromax 250 mg Tablet] 250 mg PO ASDIR PRN #6 tablet 04/22/16 Prednisone [Deltasone 20 mg Tablet] 2 tab PO DAILY 5 Days tablet 04/22/16 Meclizine HCl [Bonine] 25 mg PO TID #24 tab.chew 04/28/17 Doxycycline Hyclate 100 mg PO BID #14 capsule 11/27/17 Prednisone [Deltasone 20 mg Tablet] 3 tab PO DAILY 5 Days tablet 11/27/17 Allergies/Adverse Reactions: No Known Allergies Allergy (Verified 06/23/18 16:40) Review of Systems Constitutional: ABSENT: chills, fever(s), headache(s), weight gain, weight loss Eyes: ABSENT: visual disturbances Ears: ABSENT: hearing changes Cardiovascular: ABSENT: chest pain, dyspnea on exertion, edema, orthropnea, palpitations Respiratory: ABSENT: cough, hemoptysis Gastrointestinal: ABSENT: abdominal pain, constipation, diarrhea, hematemesis, hematochezia, nausea, vomiting Genitourinary: ABSENT: dysuria, hematuria Musculoskeletal: ABSENT: joint swelling Integumentary: ABSENT: rash, wounds Neurological: ABSENT: abnormal gait, abnormal speech, confusion, dizziness, focal weakness, syncope Psychiatric: ABSENT: anxiety, depression, homidical ideation, suicidal ideation Endocrine: ABSENT: cold intolerance, heat intolerance, polydipsia, polyuria Hematologic/Lymphatic: ABSENT: easy bleeding, easy bruising Physical Exam Vital Signs: Temp Pulse Resp BP Pulse Ox 98.1 F 88 16 103/77 96 06/24/18 03:23 06/24/18 03:23 06/24/18 03:23 06/24/18 03:23 06/24/18 03:23 General appearance: PRESENT: no acute distress, well-developed, well-nourished Head exam: PRESENT: atraumatic, normocephalic Eye exam: PRESENT: conjunctiva pink, EOMI, PERRLA. ABSENT: scleral icterus Ear exam: PRESENT: normal external ear exam Mouth exam: PRESENT: moist, tongue midline Neck exam: ABSENT: carotid bruit, JVD, lymphadenopathy, thyromegaly Respiratory exam: PRESENT: clear to auscultation abdullahi. ABSENT: rales, rhonchi, wheezes Cardiovascular exam: PRESENT: RRR. ABSENT: diastolic murmur, rubs, systolic murmur Pulses: PRESENT: normal dorsalis pedis pul Vascular exam: PRESENT: normal capillary refill GI/Abdominal exam: PRESENT: normal bowel sounds, soft. ABSENT: distended, guarding, mass, organolmegaly, rebound, tenderness Rectal exam: PRESENT: deferred Extremities exam: PRESENT: full ROM. ABSENT: calf tenderness, clubbing, pedal edema Neurological exam: PRESENT: alert, awake, oriented to person, oriented to place , oriented to time, oriented to situation, CN II-XII grossly intact. ABSENT: motor sensory deficit Psychiatric exam: PRESENT: appropriate affect, normal mood. ABSENT: homicidal ideation, suicidal ideation Skin exam: PRESENT: dry, intact, warm. ABSENT: cyanosis, rash Results Laboratory Results: 06/23/18 20:50 Troponin I < 0.012 Impressions: Chest X-Ray 06/23/18 17:00 IMPRESSION: NO ACUTE RADIOGRAPHIC FINDING IN THE CHEST. Assessment & Plan - Diagnosis (1) Chest pain Qualifiers: Chest pain type: unspecified Qualified Code(s): R07.9 - Chest pain, unspecified Is this a current diagnosis for this admission?: Yes Plan: Atypical chest pain though the patient's pain is atypical there are multiple risk factors for coronary artery disease and subsequently will observe and evaluation of acute coronary syndrome versus coronary artery disease with anginal equivalents. Cardiac monitoring blood pressure Q6 hours ,TSH, lipid profile, serial cardiac enzymes and cardiac stress test (2) Morbid (severe) obesity due to excess calories Is this a current diagnosis for this admission?: Yes Plan: Morbid obesity will evaluate for metabolic cause with evaluation of thyroid function and dietitian consultation (3) Hypertension Is this a current diagnosis for this admission?: Yes Plan: NILDA inhibitor and nitrates as needed (4) Tobacco abuse Is this a current diagnosis for this admission?: Yes Plan: Tobacco Dependence patient received tobacco cessation counseling and offered nicotine replacement options - Time Time Spent: 30 to 50 Minutes
[2018-06-24 05:27] LABS: CHOLESTEROL 159.48 mg/dL (0-200); CREATINE KINASE 42 U/L (30-135); TRIGLYCERIDES 215 mg/dL (<150)
[2018-06-24 05:38] LABS: DIRECT LDL 104 mg/dL (<100)
[2018-06-24 05:40] LABS: CREATINE KINASE MB 0.35 ng/mL (<4.55)
[2018-06-24 05:42] LABS: TROPONIN I < 0.012 ng/mL
[2018-06-24] MEDS: HEPARIN SOD (PORCINE) 5,000 UNIT/ML 1 ML SYRINGE SUBCUT SCH ×3 (06:23→22:03)
[2018-06-24] MEDS: DOCUSATE SODIUM 100 MG CAPSULE PO SCH ×2 (10:00→18:09)
--- NOTE | 2018-06-24 14:27 | PDOC PROGRESS REPORT ---
Subjective Progress Note for:: 06/24/18 Subjective:: Ms. Salomon is a 49-year-old female with past medical history of COPD not on home oxygen, hypertension, morbid obesity, GERD and anxiety who presented with chest pressure and heaviness. She was admitted to rule out ACS. Upon requestioning, patient did mention she has been having exertional chest pain at home in the past few days. She did say she has been having body malaise in the past week or so. She denies recent sick contacts. She says yesterday, she was walking up the stairs, she had a stabbing chest pain but she also described it a like an elephant sitting on her chest. She says this lasted for a few minutes. She says she was told by EMS initially to take 3 aspirin and then she had some relief from it. She denies shortness of breath, recent travel, or calf pains. Her chest pain is also reproducible on chest palpation. She does complain of very minimally productive cough. Denies wheezing. Her troponins have been negative x [address] T wave changes. She was scheduled for stress test today. Unfortunately, she drank some soda/caffeine earlier this morning and hence the 2nd part of the stress was canceled or today and will be rescheduled tomorrow morning. She is currently chest pain free. Denies SOB or palpitations. Saturating at 99% on room air. Reason For Visit: CP Physical Exam Vital Signs: Temp Pulse Resp BP Pulse Ox 98.2 F 69 18 113/64 98 06/24/18 11:00 06/24/18 11:00 06/24/18 11:00 06/24/18 11:00 06/24/18 11:00 Intake & Output 06/23/18 06/24/18 06/25/18 06:59 06:59 06:59 Weight 272 lb 0.807 oz General appearance: PRESENT: no acute distress, morbidly obese Head exam: PRESENT: atraumatic, normocephalic Eye exam: PRESENT: conjunctiva pink, EOMI, PERRLA. ABSENT: scleral icterus Ear exam: PRESENT: normal external ear exam Mouth exam: PRESENT: moist, tongue midline Neck exam: ABSENT: carotid bruit, JVD, lymphadenopathy, thyromegaly Respiratory exam: PRESENT: clear to auscultation abdullahi, other - tenderness of palpation of anterior chest wall. ABSENT: rales, rhonchi, wheezes Cardiovascular exam: PRESENT: RRR. ABSENT: diastolic murmur, rubs, systolic murmur Pulses: PRESENT: normal dorsalis pedis pul GI/Abdominal exam: PRESENT: normal bowel sounds, soft. ABSENT: distended, guarding, mass, organolmegaly, rebound, tenderness Rectal exam: PRESENT: deferred Neurological exam: PRESENT: alert, awake, oriented to person, oriented to place , oriented to time, oriented to situation, CN II-XII grossly intact. ABSENT: motor sensory deficit Results Laboratory Results: 06/24/18 06/24/18 04:07 04:07 Triglycerides 215 H Cholesterol 159.48 LDL Cholesterol Direct 104 H VLDL Cholesterol 43.0 H HDL Cholesterol 32 L TSH 3.43 06/23/18 06/24/18 06/24/18 20:50 04:07 04:07 Creatine Kinase 42 CK-MB (CK-2) 0.35 Troponin I < 0.012 < 0.012 Impressions: Chest X-Ray 06/23/18 17:00 IMPRESSION: NO ACUTE RADIOGRAPHIC FINDING IN THE CHEST. Assessment & Plan - Diagnosis (1) Chest pain Qualifiers: Chest pain type: unspecified Qualified Code(s): R07.9 - Chest pain, unspecified Is this a current diagnosis for this admission?: Yes Plan: No acute ST T wave changes on EKG. Troponins are negative x 3. Cardiac stress test not completed as patient drank soda/caffeine early this morning. She does have reproducible anterior chest wall tenderness on palpation. Will await completion of stress test. Continue aspirin and statin for now. (2) Hypertension Is this a current diagnosis for this admission?: Yes Plan: Blood pressures are well-controlled. (3) COPD (chronic obstructive pulmonary disease) Is this a current diagnosis for this admission?: Yes Plan: Not in exacerbation. Breathing treatments as needed. (4) Morbid (severe) obesity due to excess calories Is this a current diagnosis for this admission?: Yes Plan: Advised on dietary modification and importance of weight loss. - Time Time Spent with patient: 15-24 minutes
--- NOTE | 2018-06-24 16:56 | EKG REPORT ---
SEVERITY:- BORDERLINE ECG - SINUS ARRHYTHMIA, RATE 61-90 LOW VOLTAGE THROUGHOUT : Confirmed by: Yue Harrington MD 24-Jun-2018 16:56:40
[2018-06-24] MEDS: ATORVASTATIN CALCIUM 40 MG TABLET PO SCH (22:03)
[2018-06-25] MEDS: HEPARIN SOD (PORCINE) 5,000 UNIT/ML 1 ML SYRINGE SUBCUT SCH ×2 (06:49→15:06)
[2018-06-25] MEDS ORDERED: ASPIRIN 81 MG TABLET, CHEWABLE PO SCH (10:00)
[2018-06-25] MEDS: DOCUSATE SODIUM 100 MG CAPSULE PO SCH (11:24)
[2018-06-25 12:30] VITALS: BP 127/90
--- NOTE | 2018-06-25 14:07 | RADIOLOGY REPORT (SQ) ---
EXAM DESCRIPTION: CTA CHEST COMPLETED DATE/TIME: 06/25/2018 1:31 pm REASON FOR STUDY: r/o PE COMPARISON: None. TECHNIQUE: CT scan of the chest performed using helical scanning technique with dynamic intravenous contrast injection. Images reviewed with lung, soft tissue and bone windows. Reconstructed coronal and sagittal MPR images reviewed. Additional 3 dimensional post-processing performed to develop Maximal Intensity Projection images (PA P). All images stored on PACS. All CT scanners at this facility use dose modulation, iterative reconstruction, and/or weight based d osing when appropriate to reduce radiation dose to as low as reasonably achievable (ALARA). [facility]: Dose Right [facility]: CareDose [facility]: Dose Right [facility]: Teradose 4D [facility]: Yieldex CONTRAST TYPE AND DOSE: contrast/concentration: Isovue 350.00 mg/ml; Total Contrast Delivered: 77.8 ml; Total Saline Delivered: 111.0 ml Contrast bolus optimized for the pulmonary arteries. Not diagnostic for the aorta. RENAL FUNCTION: GFR > 60. RADIATION DOSE: CT Rad equipment meets quality standard of care and radiation dose reduction techniq ues were employed. CTDIvol: 1.9 - 15.5 mGy. DLP: 545 mGy-cm. . LIMITATIONS: None. FINDINGS: LUNGS AND PLEURA: Paraseptal emphysematous changes right upper lobe. No evidence of pulmo nary edema or pneumonia. No effusions. AORTA AND GREAT VESSELS: No aneurysm. Contrast bolus not optimized for the aorta. HEART: No pericardial effusion. No significant coronary artery calcifications. PULMONARY ARTERIES: No emboli visualized in the main pulmonary arteries or the segmental branches. HILAR AND MEDIASTINAL STRUCTURES: No identified masses or abnormal nodes. HARDWARE: None in the chest. UPPER ABDOMEN: No significant findings. Limited exam. THYROID AND OTHER SOFT TISSUES: No masses. No adenopathy. BONES: No acute or significant finding. 3D MIPS: Confirm above findings. OTHER: No other significant finding. IMPRESSION: No evidence of pulmonary emboli. COMMENT: Quality ID # [id number]: Final reports with documentation of one or more dose reduction techniques (e.g., Automated exposure control, adjustment of the mA and/or kV according to patient size, use of iterative reconstruction technique) TECHNICAL DOCUMENTATION: JOB ID: [id number] [employer]- All Rights Reserved Reading location - IP/workstation name: [email or web address]
[2018-06-25] MEDS ORDERED: REGADENOSON INJ 0.4 MG/5 ML DISP.SYRIN IV ONE (14:25)
--- NOTE | 2018-06-25 15:10 | PDOC DISCHARGE SUMMARY ---
General - Admit/Disc Date/PCP Admission Date/Primary Care Provider: 06/23/18 20:14 TOM SMALL MD Discharge Date: 06/25/18 - Discharge Diagnosis (1) Chest pain Is this a current diagnosis for this admission?: Yes (2) Hypertension Is this a current diagnosis for this admission?: Yes (3) COPD (chronic obstructive pulmonary disease) Is this a current diagnosis for this admission?: Yes (4) Morbid (severe) obesity due to excess calories Is this a current diagnosis for this admission?: Yes - Additional Information Resuscitation Status: Full Code Prescriptions: Albuterol Sulfate [Proair HFA Inhalation Aerosol 8.5 gm MDI] 1 puff IH Q6H PRN # 1 mdi PRN Reason: For Wheezing Atorvastatin Calcium [Lipitor 40 mg Tablet] 40 mg PO QHS #30 tablet Azithromycin 500 mg PO DAILY #3 tablet Fluticasone/Salmeterol [Advair 100-50 Diskus 14 Dose/Diskus] 1 inh IH Q12H #1 inhaler Prednisone 20 mg PO DAILY #5 tablet Home Medications: Albuterol Sulfate [Proair HFA Inhalation Aerosol 8.5 gm MDI] 1 puff IH Q6H PRN # 1 mdi 06/25/18 Atorvastatin Calcium [Lipitor 40 mg Tablet] 40 mg PO QHS #30 tablet 06/25/18 Azithromycin 500 mg PO DAILY #3 tablet 06/25/18 Fluticasone/Salmeterol [Advair 100-50 Diskus 14 Dose/Diskus] 1 inh IH Q12H #1 inhaler 06/25/18 Prednisone 20 mg PO DAILY #5 tablet 06/25/18 History of Present Illness History of Present Illness: MURALI OCONNOR is a 52 year old female with a past medical history of hypertension, morbid obesity, GERD and anxiety. Presents with 72 hours of intermittent chest heaviness and tightness, 1 out of 5 intensity, nonradiating, occurring with exertion associated with diaphoresis and shortness of breath. She denies palpitations, nausea or vomiting, recent change of medications or current pain. In the emergency room she has an unremarkable workup and is referred to the hospitalist for observation. Hospital Course Hospital Course: MURALI OCONNOR is a 52 year old female with a past medical history of hypertension, hyperlipidemia, COPD not on home O2, morbid obesity, GERD and anxiety who was admitted for atypical chest pain and SOB. Her serial EKGs and troponins were negative. She also underwent stress testing yesterday which was normal. Her chest CTA only showed emphysematous changes. She did say she has been having slightly productive cough more than her baseline chronic cough and had some body malaise in the past 5 days. Her chest pain is deemed likely from an acute bronchitis. She will complete a short course of oral steroids and 3 days of azithromycin. She says she only uses albuterol inhaler prn. She will also be started on Advair for her COPD. Patient's symptoms did resolve on day of discharge. Physical Exam Vital Signs: Temp Pulse Resp BP Pulse Ox 98.1 F 80 16 127/90 H 97 06/25/18 12:00 06/25/18 12:00 06/25/18 12:00 06/25/18 12:00 06/25/18 12:00 Intake & Output 06/24/18 06/25/18 06/26/18 06:59 06:59 06:59 Intake Total 708 Output Total 400 Balance 308 Weight 272 lb 0.807 oz 272 lb 7.861 oz General appearance: PRESENT: no acute distress, morbidly obese Head exam: PRESENT: atraumatic, normocephalic Eye exam: PRESENT: conjunctiva pink, EOMI, PERRLA. ABSENT: scleral icterus Ear exam: PRESENT: normal external ear exam Mouth exam: PRESENT: moist, tongue midline Neck exam: ABSENT: carotid bruit, JVD, lymphadenopathy, thyromegaly Respiratory exam: PRESENT: clear to auscultation abdullahi. ABSENT: rales, rhonchi, wheezes Cardiovascular exam: PRESENT: RRR. ABSENT: diastolic murmur, rubs, systolic murmur Pulses: PRESENT: normal dorsalis pedis pul GI/Abdominal exam: PRESENT: normal bowel sounds, soft. ABSENT: distended, guarding, mass, organolmegaly, rebound, tenderness Rectal exam: PRESENT: deferred Extremities exam: PRESENT: full ROM. ABSENT: calf tenderness, clubbing, pedal edema Neurological exam: PRESENT: alert, awake, oriented to person, oriented to place , oriented to time, oriented to situation, CN II-XII grossly intact. ABSENT: motor sensory deficit Psychiatric exam: PRESENT: appropriate affect, normal mood. ABSENT: homicidal ideation, suicidal ideation Skin exam: PRESENT: dry, intact, warm. ABSENT: cyanosis, rash Results Laboratory Results: 06/23/18 06/24/18 06/24/18 20:50 04:07 04:07 Creatine Kinase 42 CK-MB (CK-2) 0.35 Troponin I < 0.012 < 0.012 Impressions: Chest X-Ray 06/23/18 17:00 IMPRESSION: NO ACUTE RADIOGRAPHIC FINDING IN THE CHEST. Chest/Abdomen CTA 06/25/18 00:00 IMPRESSION: No evidence of pulmonary emboli. Qualifiers - * PATIENT BEING DISCHARGED WITH ANY OF THE FOLLOWING DIAGNOSIS: No
== END 2018-06-25 15:30 | disposition home or self-care (01) ==
LOC: ER 16:39 → EH 20:14 → 4N 23:05
PROVIDERS: ADMIT Internal Medicine; ATTEND Internal Medicine
DX: R07.89 Other chest pain (principal); I10 Essential (primary) hypertension; J44.9 Chronic obstructive pulmonary disease, unspecified; E66.01 Morbid (severe) obesity due to excess calories; R05 Cough; R53.81 Other malaise; F17.210 Nicotine dependence, cigarettes, uncomplicated; R42 Dizziness and giddiness; R61 Generalized hyperhidrosis; Z68.41 Body mass index [BMI] 40.0-44.9, adult; Z79.899 Other long term (current) drug therapy; Z90.49 Acquired absence of other specified parts of digestive tract; Z82.49 Family history of ischemic heart disease and other diseases of the circulatory system; Z82.3 Family history of stroke
CPT/HCPCS: 93005 ×2; 99285; 36415 ×2; 82553 ×2; 82550 ×2; 84443; 85025; 80053; 84484 ×2; 80061; 93017; 71045; 78452; 71275; 93010 ×2; G0378 ×4; A9500; J2785; J1644 ×2; Q9969

== ENCOUNTER 2018-08-22 22:43 | Emergency (ER) | payer MEDICAID ==
[2018-08-22] MEDS ORDERED: PREDNISONE 20 MG TABLET PO ONE (23:06)
[2018-08-22] MEDS ORDERED: IPRATROPIUM/ALBUTEROL 0.5-2.5 MG/3 ML AMPUL NEB ONE (23:06)
--- NOTE | 2018-08-22 23:27 | ER Document Report ---
ED General - General Chief Complaint: Breathing Difficulty Stated Complaint: UPPER BACK PAIN Time Seen by Provider: 08/22/18 22:59 Notes: Patient is a pleasant 42-year-old female who presents with complaint of little heaviness in her chest. She says is related to her COPD. She still smokes. She says she has been smoking more than usual because she has not been working last week because of the holidays. No fevers. No vomiting. No true chest pain. No back pain. Some wheezing. She had a recent negative cardiac stress test on June 24. She said she felt like she had a fever 2 days ago. Fever in last 24 hours. TRAVEL OUTSIDE OF THE [place] IN LAST 30 DAYS: No - Related Data Allergies/Adverse Reactions: No Known Allergies Allergy (Verified 06/23/18 16:40) Past Medical History - Social History Smoking Status: Current Every Day Smoker Frequency of alcohol use: None Drug Abuse: None Family History: CAD, CVA, Other Patient has suicidal ideation: No Patient has homicidal ideation: No - Past Medical History Cardiac Medical History: Reports: Hx Hypercholesterolemia, Hx Hypertension Pulmonary Medical History: Reports: Hx Bronchitis, Hx COPD, Hx Pneumonia Renal/ Medical History: Denies: Hx Peritoneal Dialysis GI Medical History: Reports: Hx Gastroesophageal Reflux Disease Psychiatric Medical History: Reports: Hx Depression Past Surgical History: Reports: Hx Section - x2, Hx Cholecystectomy, Hx Orthopedic Surgery - right shoulder - Immunizations Hx Diphtheria, Pertussis, Tetanus Vaccination: Yes Hx Pneumococcal Vaccination: 09/25/00 Review of Systems - Review of Systems Notes: My Normal Review Basic REVIEW OF SYSTEMS: CONSTITUTIONAL : Denies fever, chills, or sweats. Denies recent illness. EENT: Denies eye, ear, throat, or mouth pain or symptoms. Denies nasal or sinus congestion. CARDIOVASCULAR: Denies chest pain. RESPIRATORY: Difficulty breathing. Wheezing. GASTROINTESTINAL: Denies abdominal pain. Denies nausea, vomiting, or diarrhea. Denies constipation. MUSCULOSKELETAL: Denies neck or back pain or joint pain or swelling. SKIN: Denies rash or skin lesions. NEUROLOGICAL: Denies altered mental status or loss of consciousness. Denies headache. Denies weakness or paralysis or loss of use of either side. Denies problems with gait or speech. Denies sensory or motor loss. ALL OTHER SYSTEMS REVIEWED AND NEGATIVE. Physical Exam - Vital signs Vitals: Temp Pulse Resp BP Pulse Ox 97.8 F 84 17 142/83 H 93 08/22/18 22:47 08/22/18 22:47 08/22/18 22:47 08/22/18 22:47 08/22/18 22:47 - Notes Notes: General Appearance: Well nourished, alert, cooperative, no acute distress, no obvious discomfort. Vitals: reviewed, See vital signs table. Head: no swelling or tenderness to the head Eyes: PERRL, EOMI, Conjuctiva clear Mouth: No decreasd moisture Throat: No tonsillar inflammation, No airway obstruction, Lungs: Some restricted air movement. Slight wheezing. Heart: Normal rate, Regular rythm, No murmur, no rub Skin: warm, dry, appropriate color, no rash Neuro: speech clear, oriented x 3, normal affect, responds appropriately to questions. Course - Re-evaluation Re-evalutation: 08/23/18 00:16 Patient's is feeling improved after the breathing treatment. She looks well. Awaiting chest x-ray. Once its back patient will be disposed. EKG did not show any concerning changes. 08/24/18 01:59 Chest x-ray did not show any concerning findings. Patient continues to look and feel well. Will discharge home with prednisone. She is not a diabetic. Encouraged her to return to ER if she has worsening difficulty breathing, any chest pain, fevers, or feels unwell. Patient agrees with plan and was discharged home. Dictation of this chart was performed using voice recognition software; therefore, there may be some unintended grammatical errors. - Vital Signs Vital signs: Temp Pulse Resp BP Pulse Ox 97.9 F 80 20 127/64 H 95 08/23/18 01:04 08/23/18 01:04 08/23/18 01:04 08/23/18 01:04 08/23/18 01:04 - EKG Interpretation by Me Additional EKG results interpreted by me: 08/22/18 23:26 EKG is reviewed and interpreted by me. EKG shows sinus rhythm with a rate of [address] segment elevation or depression. No ischemic T wave inversions. RI interval, QRS duration, QTc intervals are within normal range. Old EKG for comparison is from June 24, 2018. Discharge - Discharge Clinical Impression: COPD (chronic obstructive pulmonary disease) Qualifiers: COPD type: unspecified COPD Qualified Code(s): J44.9 - Chronic obstructive pulmonary disease, unspecified Condition: Good Disposition: HOME, SELF-CARE Additional Instructions: Please use your inhalers as prescribed. Try to cut back n your smoking until you no longer smoke. Take the prednisone as prescribed as this will help reduce inflammation in your lungs so the inhalers are more effective. Follow up with your doctor on Monday. Return to the ER if you have difficulty breathing, recurrent fevers, or wheezing not improving with the inhaler. Prescriptions: Prednisone [Deltasone 20 mg Tablet] 3 tab PO DAILY 4 Days tablet Referrals: TOM SMALL MD [Primary Care Provider] - 08/24/18
--- NOTE | 2018-08-23 00:53 | RADIOLOGY REPORT (SQ) ---
EXAM DESCRIPTION: XR CHEST 2 VIEWS COMPLETED DATE/TME: 08/23/2018 00:14 CLINICAL HISTORY: 52 years, Female, cough COMPARISON: Prior chest x-ray 06/23/2018 NUMBER OF VIEWS: 2 TECHNIQUE: Frontal and lateral views of the chest LIMITATIONS: None. FINDINGS: Heart size is normal. Osteopenia. Lungs are hyperinflated but clear. No pneumothorax IMPRESSION: Underlying hyperinflation. Lungs are clear copyright 2010 [employer]- All Rights Reserved
[2018-08-23 01:07] VITALS: BP 127/64
--- NOTE | 2018-08-23 07:42 | EKG REPORT ---
SEVERITY:- NORMAL ECG - SINUS RHYTHM : Confirmed by: Oscar Miranda MD 23-Aug-2018 07:41:45
== END 2018-08-23 01:07 | disposition home or self-care (01) ==
LOC: ER 22:43
DX: J44.9 Chronic obstructive pulmonary disease, unspecified (principal); F17.200 Nicotine dependence, unspecified, uncomplicated; I10 Essential (primary) hypertension; Z87.01 Personal history of pneumonia (recurrent)
CPT/HCPCS: 93005; 94640; 99284; 71046; 93010; J7512; J7620

== ENCOUNTER 2018-08-27 10:46 | Emergency (ER) | payer MEDICAID ==
[2018-08-27 10:59] VITALS: BP 142/71
[2018-08-27] MEDS ORDERED: NITROGLYCERIN 0.4 MG/TAB 25 TAB/BOTTLE SL PRN (11:34)
--- NOTE | 2018-08-27 11:36 | ER Document Report ---
ED Medical Screen (RME) - General Chief Complaint: Chest Pain Stated Complaint: CHEST PAIN Time Seen by Provider: 08/27/18 11:28 Mode of Arrival: Ambulatory Information source: Patient Notes: Patient presents to the emergency department with complaints of midsternal chest pain for the last couple days. Reports it comes and goes today is constant. Denies other symptoms such as fever vomiting diarrhea. Denies history of cardiac disease. Reports she was evaluated in June for same symptoms with a stress test and echo and everything came back negative. Has not had a cardiac cath. Also reports she was here a few days ago with same symptoms. Reports history of COPD. I have greeted and performed a rapid initial assessment of this patient. A comprehensive ED assessment and evaluation of the patient, analysis of test results and completion of the medical decision making process will be conducted by additional ED providers. TRAVEL OUTSIDE OF THE [place] IN LAST 30 DAYS: No - Related Data Allergies/Adverse Reactions: No Known Allergies Allergy (Verified 08/27/18 10:47) Past Medical History - Social History Family history: Hypertension, Other - Past Medical History Cardiac Medical History: Reports: Hx Hypercholesterolemia, Hx Hypertension Pulmonary Medical History: Reports: Hx Bronchitis, Hx COPD, Hx Pneumonia Renal/ Medical History: Denies: Hx Peritoneal Dialysis GI Medical History: Reports: Hx Gastroesophageal Reflux Disease Psychiatric Medical History: Reports: Hx Depression Past Surgical History: Reports: Hx Section - x2, Hx Cholecystectomy, Hx Orthopedic Surgery - right shoulder - Immunizations Hx Diphtheria, Pertussis, Tetanus Vaccination: Yes Physical Exam - Vital signs Vitals: Temp Pulse Resp BP Pulse Ox 97.9 F 93 16 142/71 H 93 08/27/18 10:59 08/27/18 10:59 08/27/18 10:59 08/27/18 10:59 08/27/18 10:59 Course - Vital Signs Vital signs: Temp Pulse Resp BP Pulse Ox 97.9 F 93 16 142/71 H 93 08/27/18 10:59 08/27/18 10:59 08/27/18 10:59 08/27/18 10:59 08/27/18 10:59 Doctor's Discharge - Discharge Referrals: TOM SMALL MD [Primary Care Provider] - Follow up as needed
--- NOTE | 2018-08-27 12:20 | RADIOLOGY REPORT (SQ) ---
EXAM DESCRIPTION: CHEST 2 VIEWS COMPLETED DATE/TIME: 08/27/2018 12:02 pm REASON FOR STUDY: CHEST PAIN, HX COPD COMPARISON: 08/23/2018 EXAM PARAMETERS: NUMBER OF VIEWS: two views TECHNIQUE: Digital Frontal and Lateral radiographic views of the chest acquired. RADIATION DOSE: NA LIMITATIONS: none FINDINGS: LUNGS AND PLEURA: No opacities, masses or pneumothorax. No pleural effusion. MEDIASTINUM AND HILAR STRUCTURES: No masses or contour abnormalities. HEART AND VASCULAR STRUCTURES: Heart normal size. No evidence for failure. BONES: No acute findings. HARDWARE: None in the chest. OTHER: No other significant finding. IMPRESSION: NO ACUTE RADIOGRAPHIC FINDING IN THE CHEST. TECHNICAL DOCUMENTATION: JOB ID: [id number] [employer]- All Rights Reserved Reading location - IP/workstation name: [email or web address]
[2018-08-27 12:48] LABS: ABSOLUTE BASOPHILS # (AUTO) 0.1 10^3/uL (0.0-0.2); ABSOLUTE EOSINOPHILS # (AUTO) 0.2 10^3/uL (0.0-0.6); ABSOLUTE MONOCYTES (AUTO) 1.1 10^3/uL (0.1-1.4); ABSOLUTE NEUT (AUTO) 10.4 10^3/uL (1.7-8.2); BASOPHILS % (AUTO) 0.6 % (0-2); HEMATOCRIT 38.4 % (36.0-47.0); LYMPHOCYTES % (AUTO) 33.7 % (13-45); MEAN CORPUSCULAR HEMOGLOBIN 30.6 pg (27.0-33.4); MEAN CORPUSCULAR HGB CONC 33.9 g/dL (32.0-36.0); MEAN CORPUSCULAR VOLUME 90 fl (80-97); MONOCYTES % (AUTO) 6.3 % (3-13); PLATELET COUNT 336 10^3/uL (150-450); RED BLOOD COUNT 4.26 10^6/uL (3.72-5.28); RED CELL DISTRIBUTION WIDTH 14.7 % (11.5-14.0); SEGMENTED NEUTROPHILS % (AUTO) 58.4 % (42-78); TOTAL CELLS COUNTED % (AUTO) 100 %; WHITE BLOOD COUNT 17.7 10^3/uL (4.0-10.5)
[2018-08-27 12:52] LABS: APPEARANCE,URINE CLEAR; BILIRUBIN,URINE NEGATIVE (NEGATIVE); COLOR,URINE STRAW; GLUCOSE, URINE NEGATIVE (NEGATIVE); KETONES,URINE NEGATIVE (NEGATIVE); LEUKOCYTE ESTERASE,URINE NEGATIVE (NEGATIVE); NITRITE,URINE NEGATIVE (NEGATIVE); PROTEIN,URINE NEGATIVE (NEGATIVE); URINE SPECIFIC GRAVITY 1.016; UROBILINOGEN,URINE NEGATIVE mg/dL (<2.0)
[2018-08-27 13:09] LABS: BLOOD UREA NITROGEN 22 mg/dL (7-20); CALCIUM 9.5 mg/dL (8.4-10.2); GLUCOSE 112 mg/dL (75-110)
[2018-08-27 13:10] LABS: ALANINE AMINOTRANSFERASE 24 U/L (9-52); ALBUMIN 3.4 g/dL (3.5-5.0); ALKALINE PHOSPHATASE 62 U/L (38-126); ANION GAP 11 (5-19); ASPARTATE AMINO TRANSFERASE 15 U/L (14-36); BILIRUBIN,DIRECT 0.2 mg/dL (0.0-0.4); BILIRUBIN,TOTAL 0.3 mg/dL (0.2-1.3); CARBON DIOXIDE 28 mmol/L (22-30); CHLORIDE 105 mmol/L (98-107); CREATINE KINASE 32 U/L (30-135); POTASSIUM 3.6 mmol/L (3.6-5.0); SODIUM 143.9 mmol/L (137-145); TOTAL PROTEIN 6.2 g/dL (6.3-8.2)
[2018-08-27 13:19] LABS: CREATINE KINASE MB 0.38 ng/mL (<4.55)
[2018-08-27 13:21] LABS: TROPONIN I < 0.012 ng/mL
--- NOTE | 2018-08-27 14:25 | ER Document Report ---
ED Respiratory Problem - General Chief Complaint: Chest Pain Stated Complaint: CHEST PAIN Time Seen by Provider: 08/27/18 11:28 Mode of Arrival: Ambulatory Information source: Patient TRAVEL OUTSIDE OF THE [place] IN LAST 30 DAYS: No - HPI Patient complains to provider of: Chest pain, COPD, Cough, Short of breath Onset: Yesterday Duration: Intermittent episodes, Worse/persistent Severity: Moderate Pain Level: 3 Context: Hx COPD, Smoker Short of Breath: Mild Chest pain/discomfort: Left Cough: Productive Sputum amount: Small Sputum color: Green, White, Yellow Sputum consistency: Mucoid At home treatment: Bronchodilators, Oral steroids Associated symptoms: Chest pain/discomfort, Congestion, Cough, Short of breath Similar symptoms previously: Yes Recently seen / treated by doctor: Yes Notes: Patient is a 52-year-old female with a history of hypertension, high cholesterol , COPD, GERD, anxiety, who smokes approximately half a pack per day, presenting to the emergency room again today complaining of chest heaviness with tightness , shortness of breath, pain is worse when she takes a deep breath, it started sometime yesterday and has been going on intermittently for the past few months , she does report a cough productive of green or yellow and sometimes white sputum, she denies any burning sensation in her her S esophagus, although she has a history of hiatal hernia does not feel her symptoms are due to that at this point in time, patient was admitted to this facility at the end of May 2018, had a normal stress test, normal echo and a normal CTA, she was recently prescribed prednisone and an inhaler which tends to help her symptoms but she feels as though this is just a short-term fix, she does not currently have a primary care provider - Related Data Allergies/Adverse Reactions: No Known Allergies Allergy (Verified 08/27/18 10:47) Past Medical History - General Information source: Patient - Social History Smoking Status: Current Every Day Smoker Frequency of alcohol use: None Drug Abuse: None Family History: CAD, CVA, Other Patient has suicidal ideation: No Patient has homicidal ideation: No - Past Medical History Cardiac Medical History: Reports: Hx Hypercholesterolemia, Hx Hypertension Pulmonary Medical History: Reports: Hx Bronchitis, Hx COPD, Hx Pneumonia Renal/ Medical History: Denies: Hx Peritoneal Dialysis GI Medical History: Reports: Hx Gastroesophageal Reflux Disease Psychiatric Medical History: Reports: Hx Depression Past Surgical History: Reports: Hx Section - x2, Hx Cholecystectomy, Hx Orthopedic Surgery - right shoulder - Immunizations Hx Diphtheria, Pertussis, Tetanus Vaccination: Yes Hx Pneumococcal Vaccination: 09/25/00 Review of Systems - Review of Systems Constitutional: No symptoms reported EENT: No symptoms reported Cardiovascular: See HPI Respiratory: See HPI Gastrointestinal: No symptoms reported Genitourinary: No symptoms reported Female Genitourinary: No symptoms reported Musculoskeletal: No symptoms reported Skin: No symptoms reported Hematologic/Lymphatic: No symptoms reported Neurological/Psychological: No symptoms reported -: Yes All other systems reviewed and negative Physical Exam - Vital signs Vitals: Temp Pulse Resp BP Pulse Ox 97.9 F 93 16 142/71 H 93 08/27/18 10:59 08/27/18 10:59 08/27/18 10:59 08/27/18 10:59 08/27/18 10:59 Interpretation: Normal - General General appearance: Appears well, Alert - HEENT Head: Normocephalic, Atraumatic Eyes: Normal Pupils: PERRL - Respiratory Respiratory status: No respiratory distress Chest status: Tender - Tender to palpate over the midsternum in the left anterior chest wall Breath sounds: Normal Chest palpation: Normal - Cardiovascular Rhythm: Regular Heart sounds: Normal auscultation Murmur: No - Abdominal Inspection: Morbidly Obese Distension: No distension Bowel sounds: Normal Tenderness: Nontender Organomegaly: No organomegaly - Back Back: Normal, Nontender - Extremities General upper extremity: Normal inspection, Nontender, Normal color, Normal ROM , Normal temperature General lower extremity: Normal inspection, Nontender, Normal color, Normal ROM , Normal temperature, Normal weight bearing. No: Nedra's sign - Neurological Neuro grossly intact: Yes Cognition: Normal Orientation: AAOx4 Delia Coma Scale Eye Opening: Spontaneous Delia Coma Scale Verbal: Oriented Delia Coma Scale Motor: Obeys Commands [place] Coma Scale Total: 15 Speech: Normal Motor strength normal: LUE, RUE, LLE, RLE Sensory: Normal - Psychological Associated symptoms: Normal affect, Normal mood - Skin Skin Temperature: Warm Skin Moisture: Dry Skin Color: Normal Course - Re-evaluation Re-evalutation: 08/27/18 14:23 Lab and imaging findings discussed with patient at bedside which are relatively for recently finished a course of prednisone and there are no other symptoms consistent with an infectious process at this time, patient does continue to smoke approximately one half a pack per day, she was advised to discontinue this as it is likely the cause of at least some of her symptoms, otherwise she has tenderness to palpate in the left anterior chest wall, she will be placed on Motrin 600 as well as Robaxin for use as a muscle relaxer, she was cautioned with using this medication as it can cause some respiratory depression and/or impaired driving etc., patient will be given a list of primary care providers and 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-up, advised to return if symptoms worsen, patient and daughter acknowledge understanding and agreement with this plan 08/27/18 14:51 Patient did express her displeasure and the fact that she has been having these symptoms for several months, has been to this emergency room several times and has not been given a solid answer as to why she continues to have pain, we did explained to patient that the emergency department is generally here for ruling out emergencies and since we did did that it was recommended that she discontinue smoking and follow-up with primary care and/or pulmonology for further evaluation and treatment - Vital Signs Vital signs: Temp Pulse Resp BP Pulse Ox 97.9 F 93 16 142/71 H 93 08/27/18 10:59 08/27/18 10:59 08/27/18 10:59 08/27/18 10:59 08/27/18 10:59 - Laboratory Result Diagrams: 08/27/18 12:26 08/27/18 12:26 Laboratory results interpreted by me: 08/27/18 08/27/18 12:26 12:26 WBC 17.7 H RDW 14.7 H Absolute Neutrophils 10.4 H Absolute Lymphocytes 6.0 H BUN 22 H Est GFR (Non-Af Amer) 53 L Glucose 112 H Total Protein 6.2 L Albumin 3.4 L - Diagnostic Test Radiology reviewed: Image reviewed, Reports reviewed - EKG Interpretation by Me EKG shows normal: Sinus rhythm Rate: Normal Rhythm: NSR Discharge - Discharge Clinical Impression: Chest wall pain Condition: Stable Disposition: HOME, SELF-CARE Instructions: Chest Wall Pain ([facility]), Family Physicians / Practices Additional Instructions: Follow up with your primary care provider in one to 2 days. Return to the emergency room immediately if symptoms worsen or any additional concerns. Prescriptions: Ibuprofen [Motrin 600 Mg Tablet] 600 mg PO TID #30 tablet Methocarbamol [Robaxin 500 mg Tablet] 500 mg PO BID #20 tablet Forms: Smoking Cessation Education, Parent Work Note, Return to Work Referrals: TOM SMALL MD [Primary Care Provider] - Follow up as needed STEPHON DAVIS MD [ACTIVE STAFF] - Follow up as needed
--- NOTE | 2018-08-27 15:17 | EKG REPORT ---
SEVERITY:- BORDERLINE ECG - SINUS RHYTHM LOW VOLTAGE THROUGHOUT : Confirmed by: Osei Conklin 27-Aug-2018 15:16:45
== END 2018-08-27 14:45 | disposition home or self-care (01) ==
LOC: ER 10:46
DX: R07.89 Other chest pain (principal); J44.9 Chronic obstructive pulmonary disease, unspecified; R05 Cough; R06.02 Shortness of breath; F17.200 Nicotine dependence, unspecified, uncomplicated; I10 Essential (primary) hypertension; E78.00 Pure hypercholesterolemia, unspecified; K21.9 Gastro-esophageal reflux disease without esophagitis; F41.9 Anxiety disorder, unspecified
CPT/HCPCS: 36415; 71046; 80053; 81001; 82550; 82553; 84484; 85025; 93005; 93010; 99285

== ENCOUNTER 2018-09-25 22:25 | Emergency (ER) | payer MEDICAID ==
[2018-09-25 23:04] VITALS: BP 130/73
--- NOTE | 2018-09-26 00:53 | ER Document Report ---
ED Medical Screen (RME) - General Chief Complaint: General Weakness Stated Complaint: WEAKNESS,OVERALL NOT FEELING WELL Time Seen by Provider: 09/26/18 00:51 Mode of Arrival: Ambulatory Information source: Patient Notes: Patient is a 52-year-old female who presents to the emergency department with a chief complaint of weakness, cold sweats, and occasional shortness of breath for the past 10 days. She states that she was seen 3 times in the emergency department before September 14. She was then seen at her primary care doctor and was given prednisone, Ceftin, and an albuterol inhaler. She states that she has been on these medications for a few days, with no improvement of her symptoms. TRAVEL OUTSIDE OF THE [place] IN LAST 30 DAYS: No - Related Data Allergies/Adverse Reactions: No Known Allergies Allergy (Verified 08/27/18 10:47) Past Medical History - General Information source: Patient - Social History Family history: Hypertension, Other - Past Medical History Cardiac Medical History: Reports: Hx Hypercholesterolemia, Hx Hypertension Pulmonary Medical History: Reports: Hx Bronchitis, Hx COPD, Hx Pneumonia Renal/ Medical History: Denies: Hx Peritoneal Dialysis GI Medical History: Reports: Hx Gastroesophageal Reflux Disease Psychiatric Medical History: Reports: Hx Depression Past Surgical History: Reports: Hx Section - x2, Hx Cholecystectomy, Hx Orthopedic Surgery - right shoulder - Immunizations Hx Diphtheria, Pertussis, Tetanus Vaccination: Yes Physical Exam - Vital signs Vitals: Temp Pulse Resp BP Pulse Ox 97.9 F 74 17 130/73 H 94 09/25/18 23:03 09/25/18 23:03 09/25/18 23:03 09/25/18 23:03 09/25/18 23:03 - Respiratory Respiratory status: No respiratory distress Breath sounds: Normal - Cardiovascular Rhythm: Regular Course - Vital Signs Vital signs: Temp Pulse Resp BP Pulse Ox 97.9 F 74 17 130/73 H 94 09/25/18 23:03 09/25/18 23:03 09/25/18 23:03 09/25/18 23:03 09/25/18 23:03 Doctor's Discharge - Discharge Referrals: TOM SMALL MD [Primary Care Provider] - Follow up as needed
--- NOTE | 2018-09-26 03:14 | RADIOLOGY REPORT (SQ) ---
EXAM DESCRIPTION: XR CHEST 1 VIEW COMPLETED DATE/TME: 09/26/2018 00:53 CLINICAL HISTORY: 52 years Female, cough COMPARISON:06/23/2018 NUMBER OF VIEWS/TECHNIQUE: 1/AP FINDINGS: Adequate lung volume, clear parenchyma, normal cardiac silhouette, and intact bony thorax. IMPRESSION: No acute cardiopulmonary findings.
[2018-09-26 03:15] LABS: ABSOLUTE BASOPHILS # (AUTO) 0.1 10^3/uL (0.0-0.2); ABSOLUTE EOSINOPHILS # (AUTO) 0.2 10^3/uL (0.0-0.6); ABSOLUTE LYMPHOCYTES (AUTO) 3.7 10^3/uL (0.5-4.7); ABSOLUTE MONOCYTES (AUTO) 0.8 10^3/uL (0.1-1.4); ABSOLUTE NEUT (AUTO) 7.2 10^3/uL (1.7-8.2); BASOPHILS % (AUTO) 0.9 % (0-2); EOSINOPHILS % (AUTO) 1.3 % (0-6); HEMATOCRIT 40.4 % (36.0-47.0); HEMOGLOBIN 13.4 g/dL (12.0-15.5); LYMPHOCYTES % (AUTO) 30.9 % (13-45); MEAN CORPUSCULAR HEMOGLOBIN 30.4 pg (27.0-33.4); MEAN CORPUSCULAR HGB CONC 33.1 g/dL (32.0-36.0); MEAN CORPUSCULAR VOLUME 92 fl (80-97); MONOCYTES % (AUTO) 6.5 % (3-13); PLATELET COUNT 312 10^3/uL (150-450); RED BLOOD COUNT 4.41 10^6/uL (3.72-5.28); SEGMENTED NEUTROPHILS % (AUTO) 60.4 % (42-78); TOTAL CELLS COUNTED % (AUTO) 100 %; WHITE BLOOD COUNT 11.9 10^3/uL (4.0-10.5)
[2018-09-26 03:43] LABS: ALANINE AMINOTRANSFERASE 29 U/L (9-52); ALBUMIN 3.5 g/dL (3.5-5.0); ALKALINE PHOSPHATASE 67 U/L (38-126); ASPARTATE AMINO TRANSFERASE 15 U/L (14-36); BILIRUBIN,DIRECT 0.2 mg/dL (0.0-0.4); BILIRUBIN,TOTAL 0.5 mg/dL (0.2-1.3); BLOOD UREA NITROGEN 18 mg/dL (7-20); CALCIUM 9.1 mg/dL (8.4-10.2); GLUCOSE 102 mg/dL (75-110); POTASSIUM 4.5 mmol/L (3.6-5.0); TOTAL PROTEIN 6.4 g/dL (6.3-8.2)
[2018-09-26 03:48] LABS: CARBON DIOXIDE 36 mmol/L (22-30); CHLORIDE 103 mmol/L (98-107); SODIUM 142.7 mmol/L (137-145)
[2018-09-26 03:54] LABS: ANION GAP 4 (5-19)
--- NOTE | 2018-09-26 04:38 | ER Document Report ---
ED General - General Chief Complaint: General Weakness Stated Complaint: WEAKNESS,OVERALL NOT FEELING WELL Time Seen by Provider: 09/26/18 00:51 Mode of Arrival: Ambulatory Notes: Patient is a 52-year-old female who presents to the emergency department with a chief complaint of weakness, occasional shortness of breath, cold sweats, and occasional cough. She also has complaints of lower extremity swelling. She states she was here in the emergency department a couple of weeks ago and sent home with no medications. She was then seen by her primary care doctor and was given Ceftin, and albuterol inhaler, Advair, and prednisone. She states that she has taken her medications, with no improvement of her symptoms. She also states that she quit smoking 2 days ago. TRAVEL OUTSIDE OF THE [place] IN LAST 30 DAYS: No - Related Data Allergies/Adverse Reactions: No Known Allergies Allergy (Verified 08/27/18 10:47) Past Medical History - General Information source: Patient - Social History Smoking Status: Former Smoker Frequency of alcohol use: Rare Drug Abuse: None Lives with: Family Family History: CAD, CVA, Other - Past Medical History Cardiac Medical History: Reports: Hx Hypercholesterolemia, Hx Hypertension Pulmonary Medical History: Reports: Hx Bronchitis, Hx COPD, Hx Pneumonia Renal/ Medical History: Denies: Hx Peritoneal Dialysis GI Medical History: Reports: Hx Gastroesophageal Reflux Disease Psychiatric Medical History: Reports: Hx Depression Past Surgical History: Reports: Hx Section - x2, Hx Cholecystectomy, Hx Orthopedic Surgery - right shoulder - Immunizations Hx Diphtheria, Pertussis, Tetanus Vaccination: Yes Hx Pneumococcal Vaccination: 09/25/00 Physical Exam - Vital signs Vitals: Temp Pulse Resp BP Pulse Ox 97.9 F 74 17 130/73 H 94 09/25/18 23:03 09/25/18 23:03 09/25/18 23:03 09/25/18 23:03 09/25/18 23:03 - Notes Notes: PHYSICAL EXAMINATION: GENERAL: Appears well, healthy, well-nourished, no acute distress. HEAD: Normocephalic, atraumatic. EYES: PERRL, conjunctiva normal, all extraocular movements intact, sclera nonicteric ENT: Moist mucous membranes. NECK: Supple, no noticeable swelling, redness, rash. Normal range of motion. LUNGS: Equal breath sounds bilaterally and clear to auscultation. No wheezes rales or rhonchi. CARDIOVASCULAR: S1-S2, regular rate, regular rhythm. Radial pulses 2+, normal. ABDOMEN: Normoactive bowel sounds. Soft, nontender, no guarding, no rebound tenderness, and no masses palpated. EXTREMITIES: Normal strength and range of motion, nonpitting edema to bilateral lower extremities. No cyanosis. NEUROLOGICAL: Moves all extremities upon command. Strength 5/5 in all extremities. PSYCH: Normal mood, normal affect. SKIN: Warm, dry. No rash, lesions, ulcerations noted. Normal skin turgor. Course - Re-evaluation Re-evalutation: 09/26/18 Patient's chest x-ray is normal and her EKG shows sinus rhythm. Her laboratory results have actually improved from her previous visit. Due to patient's symptoms, I am suspicious of the patient possibly going through nicotine withdrawals. She smoked quite a bit, but decided to quit cold turkey. I have discussed this with her and suggested she get nicotine patches as needed for her symptoms. She was not really keen on this idea. I also have discussed her low er extremity edema with her. I suspect her lower extremity edema is due to her weight compressing on her inferior vena cava, causing her to have lower extremity edema. I have provided compression hose for her lower extremities. I have also advised her to lay on her left side to help with venous return to her heart. She verbalized understanding to all of my instructions on her edema. verbal discharge instructions were given to the patient. They verbalized understanding. They are stable for discharge. - Vital Signs Vital signs: Temp Pulse Resp BP Pulse Ox 97.9 F 74 17 130/73 H 94 09/25/18 23:03 09/25/18 23:03 09/25/18 23:03 09/25/18 23:03 09/25/18 23:03 - Laboratory Result Diagrams: 09/26/18 03:00 09/26/18 03:00 Laboratory results interpreted by me: 09/26/18 09/26/18 03:00 03:00 WBC 11.9 H RDW 15.0 H Carbon Dioxide 36 H Anion Gap 4 L Est GFR (Non-Af Amer) 57 L - EKG Interpretation by Me Additional EKG results interpreted by me: 09/26/18 03:22 Sinus rhythm. Heart rate 73. WI 140; QRS 72; QT 368; QTC 4406. Discharge - Discharge Clinical Impression: Cough, Weakness, Swelling of lower extremity Condition: Stable Disposition: HOME, SELF-CARE Additional Instructions: You were seen in the emergency department today for feeling weak, shortness of breath, and cold sweats. Your labs at this visit are normal. Your chest x-ray and EKG are normal. There is a possibility that your symptoms are due to stopping nicotine. You may use a nicotine patch as needed to help you quit smoking. The swelling in your legs is most likely due to decreased blood flow back to your heart from your abdomen. Please lay on her left side to help blood flow back to your heart. You have been provided compression stockings to help with your swelling. Your labs indicate that you do not have congestive heart failure. Please follow-up with your primary care doctor within the next 3-5 days in regards to this emergency department visit. If you develop increased shortness of breath, develop a fever greater than 100.4 F, or have any symptoms that are worrisome to you, please return to the emergency department. Referrals: TOM SMALL MD [ACTIVE STAFF] - Follow up in 3-5 days
--- NOTE | 2018-09-26 17:21 | EKG REPORT ---
SEVERITY:- BORDERLINE ECG - SINUS RHYTHM LOW VOLTAGE THROUGHOUT : Confirmed by: Yue Harrington MD 26-Sep-2018 17:20:39
== END 2018-09-26 05:03 | disposition home or self-care (01) ==
LOC: ER 22:25
DX: R53.1 Weakness (principal); R05 Cough; R60.0 Localized edema; R06.02 Shortness of breath; R61 Generalized hyperhidrosis; J44.9 Chronic obstructive pulmonary disease, unspecified; I10 Essential (primary) hypertension; Z87.891 Personal history of nicotine dependence
CPT/HCPCS: 36415; 71045; 80053; 83880; 85025; 93005; 93010; 99285

== ENCOUNTER 2020-06-16 19:22 | Emergency (ER) | payer MEDICAID ==
[2020-06-16 20:07] VITALS: BP 109/75
--- NOTE | 2020-06-16 20:10 | ER Document Report ---
ED Medical Screen (RME) - General Chief Complaint: General Weakness Stated Complaint: WEAKNESS,SHORTNESS OF BREATH Time Seen by Provider: 06/16/20 20:05 Primary Care Provider: PAUL CORRALES DO [Primary Care Provider] - Follow up as needed Mode of Arrival: Ambulatory Information source: Patient Notes: 54-year-old female presented to ED for complaint of cough congestion shortness of breath with fever. She states she does have COPD with a history of asthma and bronchitis. She does smoke a pack a day since the beginning of the pandemic. She does not drink alcohol or use any illicit drugs. Patient is alert oriented answering questions appropriate walks with even steady gait I have greeted and performed a rapid initial assessment of this patient. A comprehensive ED assessment and evaluation of the patient, analysis of test results and completion of medical decision making process will be conducted by an additional ED providers. TRAVEL OUTSIDE OF THE [place] IN LAST 30 DAYS: No - Related Data Allergies/Adverse Reactions: No Known Allergies Allergy (Verified 08/27/18 10:47) Past Medical History - Social History Family history: Hypertension, Other - Past Medical History Cardiac Medical History: Reports: Hx Hypercholesterolemia, Hx Hypertension Pulmonary Medical History: Reports: Hx Bronchitis, Hx COPD, Hx Pneumonia Renal/ Medical History: Denies: Hx Peritoneal Dialysis GI Medical History: Reports: Hx Gastroesophageal Reflux Disease Psychiatric Medical History: Reports: Hx Depression Past Surgical History: Reports: Hx Section - x2, Hx Cholecystectomy, Hx Orthopedic Surgery - right shoulder, Hx Umbilical Hernia, Other - Ventricle he rnia and hiatal hernia - Immunizations Hx Diphtheria, Pertussis, Tetanus Vaccination: Yes Doctor's Discharge - Discharge Referrals: PAUL CORRALES DO [Primary Care Provider] - Follow up as needed
[2020-06-16 21:31] LABS: ABSOLUTE BASOPHILS # (AUTO) 0.1 10^3/uL (0.0-0.2); ABSOLUTE EOSINOPHILS # (AUTO) 0.2 10^3/uL (0.0-0.6); ABSOLUTE LYMPHOCYTES (AUTO) 4.2 10^3/uL (0.5-4.7); ABSOLUTE NEUT (AUTO) 10.5 10^3/uL (1.7-8.2); BASOPHILS % (AUTO) 0.5 % (0-2); EOSINOPHILS % (AUTO) 1.6 % (0-6); HEMATOCRIT 44.6 % (36.0-47.0); LYMPHOCYTES % (AUTO) 26.2 % (13-45); MEAN CORPUSCULAR HEMOGLOBIN 31.5 pg (27.0-33.4); MEAN CORPUSCULAR HGB CONC 33.7 g/dL (32.0-36.0); MEAN CORPUSCULAR VOLUME 94 fl (80-97); PLATELET COUNT 387 10^3/uL (150-450); RED BLOOD COUNT 4.77 10^6/uL (3.72-5.28); RED CELL DISTRIBUTION WIDTH 15.1 % (11.5-14.0); SEGMENTED NEUTROPHILS % (AUTO) 65.7 % (42-78); TOTAL CELLS COUNTED % (AUTO) 100 %
--- NOTE | 2020-06-16 21:35 | RADIOLOGY REPORT (SQ) ---
EXAM DESCRIPTION: XR CHEST 1 VIEW COMPLETED DATE/TME: 06/16/2020 20:07 CLINICAL HISTORY: 54 years, Female, Cough congestion short of breath fever COMPARISON: Prior chest radiograph from 09/26/2018 NUMBER OF VIEWS: One TECHNIQUE: Single frontal view of the chest was obtained portably LIMITATIONS: None. FINDINGS: Cardiac and mediastinal contours are stable. Lungs are clear. No pleural effusion or pneumothorax. IMPRESSION: No acute disease. copyright 2010 [employer]- All Rights Reserved
[2020-06-16 21:48] LABS: A TYPE INFLUENZA AG NEGATIVE (NEGATIVE); B INFLUENZA AG NEGATIVE (NEGATIVE)
[2020-06-16 21:57] LABS: ALKALINE PHOSPHATASE 103 U/L (38-126); ANION GAP 9 (5-19); ASPARTATE AMINO TRANSFERASE 31 U/L (14-36); BILIRUBIN,DIRECT 0.3 mg/dL (0.0-0.4); BILIRUBIN,TOTAL 0.7 mg/dL (0.2-1.3); BLOOD UREA NITROGEN 22 mg/dL (7-20); CALCIUM 9.4 mg/dL (8.4-10.2); CARBON DIOXIDE 28 mmol/L (22-30); CHLORIDE 103 mmol/L (98-107); GLUCOSE 146 mg/dL (75-110); POTASSIUM 4.7 mmol/L (3.6-5.0); TOTAL PROTEIN 7.4 g/dL (6.3-8.2)
--- NOTE | 2020-06-17 00:14 | ER Document Report ---
ED General - General Chief Complaint: General Weakness Stated Complaint: WEAKNESS,SHORTNESS OF BREATH Time Seen by Provider: 06/16/20 20:05 Primary Care Provider: PAUL CORRALES DO [Primary Care Provider] - Follow up in 3-5 days Mode of Arrival: Ambulatory Notes: Patient is a 54-year-old female that comes emergency department for chief complaint of 4 days of worsening shortness of breath, cough, feeling generally under the weather. She denies chest pain, she states she felt feverish and she checked her temperature but her highest temperature was 99.2. She denies nausea, vomiting, abdominal pain, headache, congestion, or any other complaints. Past medical history of current smoking, COPD, asthma, hypertension, hyperlipidemia, obesity. She denies history of HI or CHF. She denies any obvious sick contacts or recent travel. She is not on home oxygen. TRAVEL OUTSIDE OF THE [place] IN LAST 30 DAYS: No - Related Data Allergies/Adverse Reactions: No Known Allergies Allergy (Verified 08/27/18 10:47) Past Medical History - General Information source: Patient - Social History Smoking Status: Current Every Day Smoker Smoking Education Provided: Yes - <3 min Frequency of alcohol use: None Lives with: Family Family History: CAD, CVA, Other - Past Medical History Cardiac Medical History: Reports: Hx Hypercholesterolemia, Hx Hypertension Pulmonary Medical History: Reports: Hx Bronchitis, Hx COPD, Hx Pneumonia Renal/ Medical History: Denies: Hx Peritoneal Dialysis GI Medical History: Reports: Hx Gastroesophageal Reflux Disease Psychiatric Medical History: Reports: Hx Depression Past Surgical History: Reports: Hx Section - x2, Hx Cholecystectomy, Hx Orthopedic Surgery - right shoulder, Hx Umbilical Hernia, Other - Ventricle he rnia and hiatal hernia - Immunizations Hx Diphtheria, Pertussis, Tetanus Vaccination: Yes Hx Pneumococcal Vaccination: 09/25/00 Review of Systems - Review of Systems Constitutional: See HPI EENT: No symptoms reported Cardiovascular: See HPI Respiratory: See HPI Gastrointestinal: No symptoms reported Genitourinary: No symptoms reported Female Genitourinary: No symptoms reported Musculoskeletal: No symptoms reported Skin: No symptoms reported Hematologic/Lymphatic: No symptoms reported Neurological/Psychological: No symptoms reported Physical Exam - Vital signs Vitals: Temp Pulse Resp BP Pulse Ox 99.1 F 108 H 20 109/75 97 06/16/20 20:05 06/16/20 20:05 06/16/20 20:05 06/16/20 20:05 06/16/20 20:05 - Notes Notes: GENERAL: Alert, interacts well. No acute distress. HEAD: Normocephalic, atraumatic. EYES: Pupils equal, round, and reactive to light. Extraocular movements intact. ENT: Oral mucosa moist, tongue midline. Oropharynx unremarkable. Airway patent. NECK: Full range of motion. Supple. Trachea midline. No lymphadenopathy. LUNGS: Soft rales heard in both lung bases. No wheezing or rhonchi. No respiratory distress. Non-tender chest wall. No tachypnea or labored breathing. HEART: Regular rate and rhythm. No murmur ABDOMEN: Soft, non-tender. Non-distended. EXTREMITIES: Moves all 4 extremities spontaneously. No edema, normal radial and dorsalis pedis pulses bilaterally. No cyanosis. BACK: no cervical, thoracic, lumbar midline tenderness. No saddle anesthesia, normal distal neurovascular exam. Moves all extremities in full range of motion. NEUROLOGICAL: Alert and oriented x3. Normal speech. Cranial nerves II through XII grossly intact. Strength 5/5 in all extremities. PSYCH: Normal affect, normal mood. SKIN: Warm, dry, normal turgor. No rashes or lesions noted. Course - Re-evaluation Re-evalutation: Patient is alert and well-appearing. She is borderline tachycardic. She is not hypoxic. She speaks in full sentences, no labored breathing or tachypnea. She has some soft rales in the lung bases bilaterally. No overt lower extremity swelling, no history of CHF, she denies chest pain. She has not had a fever. She reports worsening productive cough. CBC shows leukocytosis with elevation of neutrophils. Because of this along with her worsening productive cough and abnormal lung sounds I am concerned she may have an underlying pneumonia. BNP, troponin, EKG unremarkable, chest x-ray without any noted concerning findings. I discussed with patient. Because of her COPD, obesity, abnormal lung sounds, suspected pneumonia I did discuss additional testing, ambulation, possible ad mission. Patient states she would much prefer to go home but she does agree to a COVID test. Patient will be covered with dexamethasone from here, placed on antibiotics, discussed close follow-up and strict return precautions. Patient states appreciation and agreement. Stable and well-appearing at time of discharge without tachycardia. - Vital Signs Vital signs: Temp Pulse Resp BP Pulse Ox 99.1 F 108 H 18 109/75 95 06/16/20 20:05 06/16/20 20:05 06/17/20 01:00 06/16/20 20:05 06/17/20 01:00 - Laboratory Result Diagrams: 06/16/20 21:20 06/16/20 21:20 Laboratory results interpreted by me: 06/16/20 06/16/20 21:20 21:20 WBC 16.0 H RDW 15.1 H Absolute Neuts (auto) 10.5 H BUN 22 H Est GFR (MDRD) Non-Af 52 L Glucose 146 H - EKG Interpretation by Me Additional EKG results interpreted by me: EKG shows sinus tachycardia at a rate of 101, normal axis, no T wave inversions or ST segment changes in consecutive leads. QTc 415. Discharge - Discharge Clinical Impression: Productive cough, Chills Condition: Stable Disposition: HOME, SELF-CARE Additional Instructions: Your chest x-ray does not show any concerning findings, however based on your evaluation I am concerned that you are developing pneumonia. You may also have the coronavirus, you have been tested for COVID-19, please quarantine while you are awaiting your results. Continue albuterol nebulizer and inhaler if needed, take the antibiotics as prescribed to completion. Return if you worsen in any way including difficulty breathing, spiking fevers, chest pain, or any other concerning or worsening symptoms. As a person under investigation for COVID-19, the [place] Department of Health and Human Services (division on public health) advises you to adhere to the following guidance until your test results are reported to you. If your test result is positive, you will receive additional information from your provider and your local health department at that time. Remain at home until you are cleared by the health provider or public health au thorities. Keep a log of visitors to your home, notify any visitors to your home of your isolation status. If you plan to move to a new address or leave the [facility], notify the local health department in your County. Call your Doctor or seek care if you have an urgent medical need. Before seeking medical care, call him to get instructions from the provider before arriving at the medical office, clinic, or hospital. Notify them that you are being tested for the virus (COVID-19) so that arrangements can be made, as necessary, to prevent transmission to others in the healthcare setting. Next, notify the local health department in your county. If a medical emergency arises and you need to call 911, inform the first responders that you are being tested for the virus that causes COVID-19. Next, notify the local health department in your county. Prescriptions: Albuterol Sulfate [Ventolin 0.083% Neb 2.5 mg/3 mL Ampul] 2.5 mg NEB Q4HP PRN #30 vial.neb PRN Reason: Doxycycline Hyclate [Vibramycin 100 mg Tablet] 100 mg PO BID 7 Days #14 tablet Forms: Return to Work Referrals: PAUL CORRALES DO [Primary Care Provider] - Follow up in 3-5 days
[2020-06-17 00:58] LABS: NT PRO BNP 53 pg/mL (<125)
[2020-06-17 01:05] LABS: TROPONIN I < 0.012 ng/mL
--- NOTE | 2020-06-17 01:40 | EKG REPORT ---
SEVERITY:- BORDERLINE ECG - SINUS TACHYCARDIA LOW VOLTAGE THROUGHOUT : Confirmed by: Yue Harrington MD 17-Jun-2020 01:39:05
[2020-06-17] MEDS ORDERED: DOXYCYCLINE HYCLATE 100 MG TABLET PO ONE (01:42)
[2020-06-17] MEDS ORDERED: DEXAMETHASONE SOD PHOS INJ 10 MG/1 ML VIAL IM ONE (01:42)
== END 2020-06-17 02:28 | disposition home or self-care (01) ==
LOC: ER 19:22
DX: J44.9 Chronic obstructive pulmonary disease, unspecified (principal); R05 Cough; R68.83 Chills (without fever); R06.02 Shortness of breath; I10 Essential (primary) hypertension; D72.828 Other elevated white blood cell count; E66.9 Obesity, unspecified; F17.200 Nicotine dependence, unspecified, uncomplicated; Z87.01 Personal history of pneumonia (recurrent); Z20.828 Contact with and (suspected) exposure to other viral communicable diseases
CPT/HCPCS: 93005; 99285; 96372; 36415; 85025; 87635; 80053; 84484; 87804; 83880; 71045; 93010; J3490; J1100; C9803